=== PATIENT | female | born 1945 | race Caucasian/White ===

== ENCOUNTER → 2016-11-15 | Outpatient (CLI) | payer MEDICARE ==
[~2016-11-15] VITALS: Ht 160 cm; Wt 88.9 kg
[~2016-11-15] MED LIST: ACET500C PO; AMIT100TA PO; DILA100C PO; LATA5OPD OD; MELO15TA4 PO; PHEN30TA37 PO; PROP1TAB29 PO; PROPOFOL 200 MG/20 ML VIAL As Ordered ONE; SERT-138 PO; VITA200028 PO; [UNRECOGNIZED DRUG - CODE] PO
--- NOTE | 2016-11-15 15:07 | ROOR ---
Patient Name: Deja Medrano Procedure Date: 11/15/2016 2:45 PM Date of : 1945 Age: 71 Room: [facility] Gender: Female Note Status: Finalized Procedure: Upper GI endoscopy + Biopsies Indications: Follow-up of Flanagan's esophagus Providers: Gaston Dexter MD Referring MD: Colin Ruelas MD Requesting Provider: Medicines: Monitored Anesthesia Care Complications: No immediate complications. Procedure: Pre-Anesthesia Assessment: - The heart rate, respiratory rate, oxygen saturations, blood pressure, adequacy of pulmonary ventilation, and response to care were monitored throughout the procedure. The Endoscope was introduced through the mouth, and advanced to the second part of duodenum. The upper GI endoscopy was accomplished without difficulty. The patient tolerated the procedure well. Findings: The Z-line was regular and was found 25 cm from the incisors. The esophagus and gastroesophageal junction were examined with white light from a forward view and retroflexed position. There were esophageal mucosal changes secondary to established long-segment Flanagan's disease. These changes involved the mucosa at the upper extent of the gastric folds (40 cm from the incisors) extending to the Z-line (25 cm from the incisors). Circumferential salmon-colored mucosa was present from 25 to 40 cm. The maximum longitudinal extent of these esophageal mucosal changes was 15 cm in length. Mucosa was biopsied with a cold forceps for histology. A large hiatal hernia was present. No other significant abnormalities were identified in a careful examination of the stomach. The exam of the duodenum was otherwise normal. Impression: - Z-line regular, 25 cm from the incisors. - Esophageal mucosal changes secondary to established long-segment Flanagan's disease. Biopsied. - Large hiatal hernia. - The examination was otherwise normal. Recommendation: - Patient has a contact number available for emergencies. The signs and symptoms of potential delayed complications were discussed with the patient. Return to normal activities tomorrow. Written discharge instructions were provided to the patient. - Discharge patient to home. - Follow an antireflux regimen. - Continue present medications. - Await pathology results. - Telephone GI clinic for pathology results in 1 week. - Return to referring physician. - The findings and recommendations were discussed with the patient's family. Gaston Dexter MD Gaston Dexter MD 11/15/2016 3:07:24 PM This report has been signed electronically. Number of Addenda: 0 Note Initiated On: 11/15/2016 2:45 PM Estimated Blood Loss: Estimated blood loss: none.
[2016-11-15 15:30] VITALS: BP 160/97
== END ==
LOC: M OPP 13:41
PROVIDERS: ATTEND Internal Medicine Gastroenterology
DX: Z09 Encounter for follow-up examination after completed treatment for conditions other than malignant neoplasm (principal); K22.70 Barrett's esophagus without dysplasia; K44.9 Diaphragmatic hernia without obstruction or gangrene; K21.9 Gastro-esophageal reflux disease without esophagitis; G43.909 Migraine, unspecified, not intractable, without status migrainosus; G40.909 Epilepsy, unspecified, not intractable, without status epilepticus; Z90.49 Acquired absence of other specified parts of digestive tract; Z79.899 Other long term (current) drug therapy; Z88.0 Allergy status to penicillin; Z88.5 Allergy status to narcotic agent

== ENCOUNTER → 2017-03-28 | Outpatient (CLI) | payer MEDICARE ==
[~2017-03-28] MED LIST changes: -PROPOFOL 200 MG/20 ML VIAL As Ordered ONE
--- NOTE | 2017-03-28 09:56 | REPMRS ---
Patient History The patient states she has not had a clinical breast exam in over a year. Patient is postmenopausal. No known family history of cancer. Digital Mammo Screening Bilat: March 28, 2017 - Exam #: [id number] Bilateral CC and MLO view(s) were taken. Technologist: Ilsa Barrios, Technologist Prior study comparison: March 29, 2016, bilateral digital mammo screening bilat performed at [facility]. March 24, 2015, bilateral digital mammo screening bilat performed at [facility]. March 27, 2014, bilateral digital mammo screening bilat performed at [facility]. FINDINGS: The breast tissue is almost entirely fat. There has been no change in the appearance of the mammogram from the prior studies. There is no interval development of dominant mass, architectural distortion, or clustered microcalcification typical of malignancy. ASSESSMENT: BI-RADS/ACR category 1 mammogram. Negative. Recommendation Routine screening mammogram of both breasts in 1 year (for women over age 40). This mammogram was interpreted with the aid of an FDA-approved computer-aided dectection system. Electronically Signed By: Bronson Javed MD 03/28/17 3422
== END ==
LOC: M RAD 09:11
PROVIDERS: ATTEND Family Medicine
DX: Z12.31 Encounter for screening mammogram for malignant neoplasm of breast (principal)

== ENCOUNTER → 2017-06-21 | Outpatient (REF) | payer MEDICARE ==
[~2017-06-21] MED LIST changes: +CALC1TAB7 PO; -[UNRECOGNIZED DRUG - CODE] PO
[2017-06-21 14:36] LABS: PHENOBARBITAL LEVEL 19.1 UG/ML (15.0-40.0)
== END ==
LOC: M LAB REF 08:44
PROVIDERS: ATTEND Family Medicine
DX: R56.9 Unspecified convulsions (principal)

== ENCOUNTER → 2017-08-14 | Outpatient (CLI) | payer MEDICARE ==
--- NOTE | 2017-08-15 08:57 | DEXA ---
AP SPINE L1 - L4 1.310 0.9 2.6 LT FEMUR TOTAL 0.953 -0.4 1.1 RT FEMUR TOTAL 0.905 -0.8 0.7 TOTAL BODY TOTAL OTHER DUAL FEMUR FRAX* ASSESSMENT Risk factors: 10 year probability of fracture Major osteoporotic fracture % Hip fracture % COMMENTS: Normal bone densitometry of the spine and hips. The increased density of the spine does represent a significant change. The increased density of the left hip does represent a significant change. The increased density of the right hip does represent a significant change. The density of the spine has increased 27.4% since the initial exam on 02/2003. The spine density has increased 2.7% since the most recent exam on 07/2015. The density of the left hip has increased 10.0% since the initial exam on 2002. The density of the left hip has increased 6.0% since the most recent exam on 2014. The density of the right hip has increased 6.3% since the initial exam on 2002. The density of the right hip has increased 2.3% since the most recent exam on . FOLLOW-UP: Recommendation for the next bone density exam: Years. [place]
== END ==
LOC: M WHC 09:23
PROVIDERS: ATTEND Family Medicine
DX: M85.80 Other specified disorders of bone density and structure, unspecified site (principal); M81.0 Age-related osteoporosis without current pathological fracture

== ENCOUNTER → 2018-03-27 | Outpatient (CLI) | payer MEDICARE | LOC: M RAD 09:19 | DX: Z12.31 Encounter for screening mammogram for malignant neoplasm of breast (principal) | CPT/HCPCS: 77067 ==

== ENCOUNTER → 2018-06-28 | Outpatient (REF) | payer MEDICARE ==
[2018-06-28 15:32] LABS: PHENYTOIN (DILANTIN) 4.5 UG/ML (10.0-20.0)
[2018-06-28 15:32] LABS: PHENOBARBITAL LEVEL 16.3 UG/ML (15.0-40.0)
== END ==
LOC: M LAB REF 13:56
DX: R56.9 Unspecified convulsions (principal)
CPT/HCPCS: 80185

== ENCOUNTER 2018-12-10 08:08 | Day surgery (SDC) | payer MEDICARE ==
[~2018-12-10] VITALS: Ht 160 cm; Wt 86.6 kg
[~2018-12-10 08:08] MED LIST changes: +ACET500T15 PO; +MELO15TA28 PO; -MELO15TA4 PO; +PHEN60TA9 PO; -PROP1TAB29 PO; +PROP20TA72 PO; +XALA0.007 OU
[2018-12-10] MEDS ORDERED: PROPOFOL 200 MG/20 ML VIAL As Ordered ONE (08:13)
[2018-12-10] MEDS ORDERED: LIDOCAINE 2% INJ 100 MG/5 ML SDV (FOR ANES.) As Ordered ONE (08:13)
[2018-12-10] MEDS ORDERED: fentaNYL 100 MCG/2 ML INJECTION (J3010) As Ordered ONE (08:41)
[2018-12-10] MEDS ORDERED: NS 1,000 ML IV ONE (08:45)
--- NOTE | 2018-12-10 09:36 | ROOR ---
Patient Name: Deja Medrano Procedure Date: 12/10/2018 9:17 AM Date of : 1945 Age: 73 Room: [facility] Gender: Female Note Status: Finalized Procedure: Upper Endoscopy + Biopsies Indications: Heartburn, Flanagan's esophagus, Follow-up of Flanagan's esophagus Providers: Gaston Dexter MD Referring MD: Colin Ruelas MD Requesting Provider: Medicines: Monitored Anesthesia Care Complications: No immediate complications. Procedure: Pre-Anesthesia Assessment: - The heart rate, respiratory rate, oxygen saturations, blood pressure, adequacy of pulmonary ventilation, and response to care were monitored throughout the procedure. The Endoscope was introduced through the mouth, and advanced to the second part of duodenum. The upper GI endoscopy was accomplished without difficulty. The patient tolerated the procedure well. Findings: The Z-line was irregular and was found 25 cm from the incisors. Multiple biopsies were obtained with cold forceps for evaluation to rule out Flanagan's Esophagus randomly at the gastroesophageal junction. A medium-sized hiatal hernia was present. No other significant abnormalities were identified in a careful examination of the stomach. The exam of the duodenum was otherwise normal. Impression: - Z-line irregular, 25 cm from the incisors. - Medium-sized hiatal hernia. - Multiple biopsies were obtained at the gastroesophageal junction. - The examination was otherwise normal. Recommendation: - Patient has a contact number available for emergencies. The signs and symptoms of potential delayed complications were discussed with the patient. Return to normal activities tomorrow. Written discharge instructions were provided to the patient. - High fiber diet. - Discharge patient to home. - Continue present medications. - Await pathology results. - Telephone GI clinic for pathology results in 1 week. - The findings and recommendations were discussed with the patient's family. Gaston Dexter MD Gaston Dexter MD 12/10/2018 9:36:11 AM This report has been signed electronically. Number of Addenda: 0 Note Initiated On: 12/10/2018 9:17 AM Estimated Blood Loss: Estimated blood loss: none.
[2018-12-10 10:05] VITALS: BP 156/78
== END 2018-12-10 10:11 | disposition home or self-care (01) ==
LOC: M OPP 08:08
PROVIDERS: ATTEND Internal Medicine Gastroenterology
DX: K22.8 Other specified diseases of esophagus (principal); K44.9 Diaphragmatic hernia without obstruction or gangrene; K22.70 Barrett's esophagus without dysplasia; R12 Heartburn; Z79.899 Other long term (current) drug therapy; Z88.0 Allergy status to penicillin; Z88.5 Allergy status to narcotic agent; Z91.048 Other nonmedicinal substance allergy status
CPT/HCPCS: 43239; 88305; J3010

== ENCOUNTER → 2019-04-05 | Outpatient (CLI) | payer MEDICARE ==
[~2019-04-05] MED LIST changes: +LATA0.0013 OD; -LATA5OPD OD
--- NOTE | 2019-04-05 10:36 | REPMRS ---
Patient History The patient states she has not had a clinical breast exam in over a year. No known family history of cancer. Digital Mammo Screening Bilat: April 05, 2019 - Exam #: [id number] Bilateral CC and MLO view(s) were taken. Technologist: Zakiya Jason Technologist Prior study comparison: March 27, 2018, bilateral digital mammo screening bilat performed at [facility]. March 28, 2017, bilateral digital mammo screening bilat performed at [facility]. March 29, 2016, bilateral digital mammo screening bilat performed at [facility]. FINDINGS: There are scattered fibroglandular densities. There has been no change in the appearance of the mammogram from the prior studies. There is a mild amount of scattered fibroglandular density which is fairly symmetric. There is no interval development of dominant mass, architectural distortion, or clustered microcalcification suggestive of malignancy. 3-D tomosynthesis shows no additional findings. Assessment: BI-RADS/ACR category 1 mammogram. Negative Mammogram. Recommendation Routine screening mammogram of both breasts in 1 year (for women over age 40). This patient's Lifetime Breast Cancer RIsk is estimated at 2.9 %. This mammogram was interpreted with the aid of an FDA-approved computer-aided dectection system. Electronically Signed By: Bronson Javed MD 04/05/19 [id number]
== END ==
LOC: M RAD 09:13
PROVIDERS: ATTEND Family Medicine
DX: Z12.31 Encounter for screening mammogram for malignant neoplasm of breast (principal)

== ENCOUNTER → 2019-06-27 | Outpatient (REF) | payer MEDICARE ==
[~2019-06-27] MED LIST changes: -CALC1TAB7 PO; +CALC260T PO; +ELIQ5TAB PO; +FURO20TA2 PO; +KEPP250T5 PO; +LEVE750T5 PO; +LISI-542 PO; +MAG400TA PO; +MAGN400T2 PO; +METO1TAB32 PO
[2019-06-27 14:34] LABS: PHENOBARBITAL LEVEL 14.2 UG/ML (15.0-40.0); PHENYTOIN (DILANTIN) 3.9 UG/ML (10.0-20.0)
== END ==
LOC: M LAB REF 13:28
PROVIDERS: ATTEND Family Medicine
DX: R56.9 Unspecified convulsions (principal)

== ENCOUNTER 2019-09-17 04:41 | Emergency (ER) | payer MEDICARE ==
[~2019-09-17] VITALS: Ht 165.1 cm; Wt 88.6 kg
[~2019-09-17 04:41] MED LIST changes: -ELIQ5TAB PO; -FURO20TA2 PO; -KEPP250T5 PO; -LEVE750T5 PO; -LISI-542 PO; -MAG400TA PO; -MAGN400T2 PO; -METO1TAB32 PO
[2019-09-17 05:20] LABS: BASO # 0.1 10^3/uL (0.0-0.2); BASO % 0.6 % (0.0-1.0); EOS # 0.1 10^3/uL (0.0-0.5); EOS % 0.8 % (0.0-3.0); HEMATOCRIT 40.1 % (36.0-47.0); HEMOGLOBIN 12.8 g/dl (12.0-15.5); LYMPH # 1.4 10^3/uL (1.5-5.0); LYMPH % 12.2 % (24.0-44.0); MEAN CORPUSCULAR HEMOGLOBIN 31.2 pg (27.0-33.0); MEAN CORPUSCULAR HGB CONC 31.9 g/dl (32.0-36.5); MEAN CORPUSCULAR VOLUME 97.8 fl (80.0-96.0); MONO # 0.7 10^3/uL (0.0-0.8); MONO % 6.6 % (0.0-5.0); NEUTROPHILS # 8.9 10^3/uL (1.5-8.5); NEUTROPHILS % 79.4 % (36.0-66.0); PLATELET COUNT, AUTOMATED 232 10^3/uL (150-450); WHITE BLOOD COUNT 11.2 10^3/uL (4.0-10.0)
--- NOTE | 2019-09-17 05:43 | REPVR ---
PROCEDURE INFORMATION: Exam: CT Head Without Contrast Exam date and time: 09/17/2019 5:28 AM Age: 74 years old Clinical history: Syncope and collapse TECHNIQUE: Imaging protocol: Computed tomography of the head without contrast. Radiation optimization: All CT scans at this facility use at least one of these dose optimization techniques: automated exposure control; mA and/or kV adjustment per patient size (includes targeted exams where dose is matched to clinical indication); or iterative reconstruction. COMPARISON: No relevant prior studies available. FINDINGS: There is a small amount of acute subarachnoid hemorrhage over the high left frontal lobe. No other intracranial hemorrhage. No mass effect or midline shift. Ventricles are symmetrical and non-dilated for age. Chronic ischemic changes in the periventricular deep white matter with probable old lacunar infarction in the right basal ganglia. No other focal parenchymal abnormalities. No calvarial fractures. IMPRESSION: Small amount of acute subarachnoid hemorrhage over the high left frontal lobe. Etiology is unknown, although subjectively appears posttraumatic. Correlation with trauma history is recommended. No other acute intracranial process. No mass effect or midline shift. Findings were discussed with NICO FRASER at 09/17/2019 5:42 AM EST Electronically signed by: Yuri Myers On 09/17/2019 05:42:37 AM
[2019-09-17 05:52] LABS: BLOOD UREA NITROGEN 15 MG/DL (7-18); CARBON DIOXIDE LEVEL 25 MEQ/L (21-32); CHLORIDE LEVEL 107 MEQ/L (98-107); CK-MB VALUE MASS 3.6 NG/ML (<3.6); CPK CREATINE PHOSPHOKINASE 89 U/L (26-192); CREATININE FOR GFR 0.91 MG/DL (0.55-1.30); GLOMERULAR FILTRATION RATE > 60.0 (>39); GLUCOSE, FASTING 134 MG/DL (70-100); MB/CK RELATIVE INDEX 4.04 (< OR =4); POTASSIUM SERUM 3.8 MEQ/L (3.5-5.1); SODIUM LEVEL 140 MEQ/L (136-145)
[2019-09-17 06:11] LABS: INR 1.13; PROTHROMBIN TIME 14.2 SECONDS (11.8-14.0)
[2019-09-17 06:12] LABS: PARTIAL THROMBOPLASTIN TIME 25.8 SECONDS (25.0-38.4)
[2019-09-17] MEDS ORDERED: ONDANSETRON 4MG/2ML VIAL (J2405) IV ONE (06:15)
[2019-09-17] MEDS ORDERED: MORPHINE 4 MG/ML 1ML VIAL/SYRINGE (J2270) IV PRN (06:15)
[2019-09-17 06:17] LABS: PHENYTOIN (DILANTIN) 3.1 UG/ML (10.0-20.0)
[2019-09-17 06:31] VITALS: BP 172/98
--- NOTE | 2019-09-17 07:49 | REP ---
Clinical: Syncope/near-syncopal episode . Comparison: None . Findings: The mediastinum and cardiac silhouette are stable and within normal limits for portable technique. The lung hahn are clear without acute consolidation, effusion, or pneumothorax. Skeletal structures are intact. Impression: No acute cardiopulmonary process appreciated. Electronically Signed by Arnav Morales MD 09/17/2019 07:40 A
--- NOTE | 2019-09-18 08:40 | ECGEPIP ---
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
== END 2019-09-17 06:47 | disposition short-term general hospital (02) ==
LOC: M ED 04:41
DX: S06.6X0A Traumatic subarachnoid hemorrhage without loss of consciousness, initial encounter (principal); W18.39XA Other fall on same level, initial encounter; Y92.098 Other place in other non-institutional residence as the place of occurrence of the external cause; Y93.01 Activity, walking, marching and hiking; Y99.8 Other external cause status; R53.1 Weakness; R06.02 Shortness of breath; I10 Essential (primary) hypertension; G40.909 Epilepsy, unspecified, not intractable, without status epilepticus; Z88.0 Allergy status to penicillin; Z88.5 Allergy status to narcotic agent; Z91.048 Other nonmedicinal substance allergy status; Z79.899 Other long term (current) drug therapy
CPT/HCPCS: 70450; 71045; 80048; 80185; 82550; 82553; 83605; 84443; 84484; 85025; 85610; 85730; 93005; 93041; 94760; 96374; 96375; 99285; J2270; J2405

== ENCOUNTER 2019-09-25 12:51 | Inpatient (IN) | payer MEDICARE ==
[~2019-09-25] VITALS: Ht 165.1 cm; Wt 83.0 kg
[2019-09-25 15:16] VITALS: BP 143/67
[2019-09-25] MEDS ORDERED: LEVE750T5 PO (17:05)
[2019-09-25] MEDS ORDERED: MAGN400T2 PO (17:05)
[2019-09-25] MEDS ORDERED: SERT-138 PO (17:05)
[2019-09-25] MEDS ORDERED: ELIQ5TAB PO (17:05)
[2019-09-25] MEDS ORDERED: MOM 30ML SUSPENSION UDC PO PRN (17:30)
[2019-09-25] MEDS ORDERED: BISACODYL 5 MG TAB PO PRN (17:30)
[2019-09-25] MEDS: LATANOPROST 0.005% OPHTH SOLN 2.5 ML OU SCH (20:03)
[2019-09-25] MEDS: levETIRAcetam 250MG TABLET (KEPPRA) PO SCH (20:03)
[2019-09-25] MEDS: APIXABAN 5 MG TAB (ELIQUIS) PO SCH (20:03)
[2019-09-25] MEDS: DOCUSATE SODIUM 100 MG CAP PO SCH (20:03)
[2019-09-25] MEDS: SENNA 8.6 MG TAB (SENOKOT) PO SCH (20:03)
[2019-09-25 20:35] VITALS: BP 136/84
[2019-09-26 06:30] VITALS: BP 161/77
[2019-09-26 06:45] LABS: BASO # 0.1 10^3/uL (0.0-0.2); BASO % 0.6 % (0.0-1.0); EOS # 0.2 10^3/uL (0.0-0.5); EOS % 1.9 % (0.0-3.0); HEMATOCRIT 37.4 % (36.0-47.0); HEMOGLOBIN 11.9 g/dl (12.0-15.5); LYMPH # 1.1 10^3/uL (1.5-5.0); LYMPH % 11.4 % (24.0-44.0); MEAN CORPUSCULAR HEMOGLOBIN 30.9 pg (27.0-33.0); MEAN CORPUSCULAR HGB CONC 31.8 g/dl (32.0-36.5); MEAN CORPUSCULAR VOLUME 97.1 fl (80.0-96.0); MONO % 10.8 % (0.0-5.0); NEUTROPHILS # 7.2 10^3/uL (1.5-8.5); PLATELET COUNT, AUTOMATED 255 10^3/uL (150-450); RED BLOOD COUNT 3.85 10^6/uL (4.00-5.40); WHITE BLOOD COUNT 9.6 10^3/uL (4.0-10.0)
[2019-09-26 07:13] LABS: BLOOD UREA NITROGEN 7 MG/DL (7-18); CREATININE FOR GFR 0.57 MG/DL (0.55-1.30); GLUCOSE, FASTING 107 MG/DL (70-100)
[2019-09-26 07:14] LABS: ALBUMIN 2.6 GM/DL (3.2-5.2); ALT/SGPT 31 U/L (12-78); BILIRUBIN,TOTAL 0.5 MG/DL (0.2-1.0); CALCIUM LEVEL 8.4 MG/DL (8.8-10.2); CARBON DIOXIDE LEVEL 26 MEQ/L (21-32); CHLORIDE LEVEL 106 MEQ/L (98-107); GLOMERULAR FILTRATION RATE > 60.0 (>39); SODIUM LEVEL 139 MEQ/L (136-145); TOTAL PROTEIN 6.8 GM/DL (6.4-8.2)
[2019-09-26] MEDS: SERTRALINE 100 MG TAB PO SCH (09:26)
[2019-09-26] MEDS: DOCUSATE SODIUM 100 MG CAP PO SCH ×2 (09:26→21:00)
[2019-09-26] MEDS: APIXABAN 5 MG TAB (ELIQUIS) PO SCH ×2 (09:27→21:00)
[2019-09-26] MEDS: levETIRAcetam 250MG TABLET (KEPPRA) PO SCH ×2 (09:27→21:00)
[2019-09-26] MEDS: MAGNESIUM OXIDE 400 MG TAB (MAG-OX) PO SCH (09:27)
[2019-09-26] MEDS: ACETAMINOPHEN TAB 650MG DOSE (2X325MG) PO PRN (09:27)
[2019-09-26] MEDS: PANTOPRAZOLE 40MG TAB (PROTONIX) PO SCH (09:27)
[2019-09-26 14:30] VITALS: BP 143/79
--- NOTE | 2019-09-26 14:48 | HPEPDOC ---
Material Lister Note DATE OF ADMISSION: 09-25-19 SOURCE OF ADMISSION INFORMATION: [facility] records and patient CHIEF COMPLAINT: SAH HISTORY OF PRESENT ILLNESS: 74F with pmh seizure disorder who fell at home with LOC, hitting her head, and transferred from [facility] ED to [facility] on 09-17-19 for traumatic SAH with CTH showing, small amount of acute subarachnoid hemorrhage over the high left frontal lobe. Upon arrival she was hypoxic in acute respiratory failure and found to have bilateral DVTs and bilateral PEs, was started on IV heparin, transitioned to Lovenox, and later transitioned to oral eliquis per neurology recommendations with repeat CTH scans showing stable SAH. Etiology of her VTE was unknown with patient reporting weeks of dyspnea with exertion and dizziness. TTE showed, " Estimated LVEF 55 - 60%. Indeterminate LV diastolic functionThe right ventricle is markedly enlarged. The right ventricular systolic function is impaired. The right ventricular free wall is dyskinetic." Her SAH remained stable while on anticoagulation, and she was instructed to follow-up with neurology for a planum spenoidal meningioma, an incidental finding on CTA. She was treated for a UTI and her home phenobarbital and Dilantin was switched to Keppra to avoid drug interaction while on blood thinners. She was evaluated by therapy, found to have mobility and ADL impairments and deemed medically appropriate for discharge to ARU on 09-25-19. REVIEW OF SYSTEMS: The following is a completed review of systems and has been reviewed. Review of systems otherwise unremarkable. PAIN: Patient self reports no pain EYES: No recent vision changes EARS, NOSE, & THROAT: No throat pain, or dysphagia, or rhinorrhea CARDIOVASCULAR: Denies chest pain or palpitations PULMONARY: Denies shortness of breath at rest GASTROINTESTINAL: Denies constipation/diarrhea GENITOURINARY: denies dysuria MUSCULOSKELETAL: mild right sided weakness NEUROLOGICAL:+SAH and hx of seizures HEMATOLOGICAL: denies easy bruising SKIN: right temporal ecchymosis PSYCHIATRIC: Unremarkable All other review of systems found to be negative. PAST MEDICAL HISTORY: as per HPI PAST SURGICAL HISTORY: as per HPI ALLERGIES: Please see below. MEDICATIONS: Please see below. SOCIAL HISTORY: No etoh, smoking, illicit drugs DIET: regular diet PHYSICAL EXAMINATION: VITAL SIGNS: Please see below. GENERAL: Pleasant and cooperative. No acute distress. HEENT: PERRL. Extraocular movements intact. Clear conjunctiva CARDIOVASCULAR: Regular rate and rhythm. No murmurs, rubs, or gallops LUNGS: Clear to auscultation bilaterally. No wheezes. No rhonchi ABDOMEN: Soft, nontender, nondistended. Positive bowel sounds. Normal active bowel sounds NEUROLOGICAL: Alert and oriented times three. Cranial nerves II through XII grossly intact. Sensation grossly intact in all 4 limbs EXTREMITIES: 5\\5 strength bilateral upper extremities. 5\\5 strength right lower extremity (apraxic right LE). 5/5 strength in left lower extremity. SKIN: right temporal ecchymosis LABORATORY DATA: Please see below. IMAGING:Imaging documentation personally reviewed by record FUNCTIONAL STATUS: Premorbid: Independent with all activities of daily life as well as mobility On Admission: Minimum assistance for bathing, upper body dressing, bed chair and wheelchair transfers, toilet transfers, ambulation. GOALS: Mod-I with RW, functional transfers, stairs, community distances, toileting, bathing, grooming, assess for DMEs ASSESSMENT:74-year-old F with past medical history of seizure disorder who presents status post fall with traumatic SAH found to have bilat PE and DVTs. PLAN: 1. 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 Neuro: hx seizure disorder, recenly switched from dilantin/phenobarbital to Keppra, will f/u Keppra levels- seizure precautions -recent traumatic left frontal SAH with right sided apraxia 3. CArdio/Vasc: patient with bilat PEs and DVTs c/u Eliquis, monitor for bl eeding -recent ECHO with diastolic CHF, will fluid restrict 4. Resp: c/u 02 ins etting of PE, encourage incentive spirometry 5. GI ppx: protonix 6. DVT: on eliquis full dose 7. Psych: hx of depression- c/u ZOloft 9. Pain: tylenol prn 10. Dispo: TBD POST ADMISSION PHYSICIAN EVALUATION: Medical and functional status: Description of medical status, medical assessment: As above. Rehabilitation diagnosis and current and prior cold morbid medical conditions as above. Risk of complications and plans to mitigate them as above. Description of functional status current status is as above. Prior status as above. Status compared to preadmission: There are no clinically significant differences between the patient's current status and the information described on the preadmission screening document. Treatment plan anticipated: Treatment plan is as described above. Required disciplines including physical therapy, occupational therapy, others as noted above. Intensity of services: 3 hours a day, 6 days a week. Special considerations: There are no specific special or safety considerations that would likely preclude immediate implementation of an intensive rehabilitation program or subsequently influence the plan of care ATTESTATION: Considering all the information above, it is my best judgment that this patient requires intensive rehabilitation therapy as described above and an inpatient hospital environment due to the complexity of nursing, medical, and rehabilitation needs required by the patient. Furthermore, this patient can reasonably be expected to participate in an benefit from an inpatient rehabilitation stay with an interdisciplinary team approach to the delivery of rehabilitation care under the direction and supervision of rehabilitation physician PROGNOSIS: Excellent ESTIMATED LENGTH OF STAY:12-14 days days. PROJECTED DISCHARGE DESTINATION: Home with family support and any durable medical equipment required to increase functional safety and mobility. TIME SPENT COUNSELING AND COORDINATING INITIAL CARE: Greater than 70 minutes. Vital Signs Vital Sign - Last 24 Hours 09/25/19 09/25/19 09/25/19 09/26/19 15:16 20:35 21:00 06:30 Temp 99.1 99.6 98.7 Pulse 106 94 98 Resp 22 19 18 B/P (MAP) 143/67 (92) 136/84 (101) 161/77 (105) Pulse Ox 94 96 96 O2 Delivery Nasal Cannula Nasal Cannula Nasal Cannula O2 Flow Rate 2.0 2.0 2.0 2.0 09/26/19 09:00 O2 Flow Rate 2.0 Laboratory Data CBC/BMP Laboratory Tests 09/26/19 06:34 Labs 24H Laboratory Tests 2 09/26/19 06:34: Immature Granulocyte % (Auto) 0.3, Neutrophils (%) (Auto) 75.0H, Lymphocytes (%) (Auto) 11.4L, Monocytes (%) (Auto) 10.8H, Eosinophils (%) (Auto) 1.9, Basophils (%) (Auto) 0.6, Neutrophils # (Auto) 7.2, Lymphocytes # (Auto) 1.1L, Monocytes # (Auto) 1.0H, Eosinophils # (Auto) 0.2, Basophils # (Auto) 0.1, Nucleated Red Blood Cells % (auto) 0.0, Anion Gap 7L, Glomerular Filtration Rate > 60.0, Calcium Level 8.4L, Total Bilirubin 0.5, Aspartate Amino Transf (AST/SGOT) 30, Alanine Aminotransferase (ALT/SGPT) 31, Alkaline Phosphatase 99, Total Protein 6.8, Albumin 2.6L, Albumin/Globulin Ratio 0.62L Home Medications Scheduled Apixaban (Eliquis) 5 Mg Tablet, 5 MG PO BID, (Reported) Calcium Carbonate (Calcium Carbonate) 648 Mg Tab, 648 MG PO TID, (Reported) Ergocalciferol (Vitamin D2) (Vitamin D2) 2,000 Unit Tab, 50,000 UNIT PO QWEEK, (Reported) MONDAY Latanoprost (Xalatan) 0.005 % Yeny, 1 DROP OU QHS, (Reported) Levetiracetam (Levetiracetam) 750 Mg Tablet, 750 MG PO BID, (Reported) Magnesium Oxide (Magnesium Oxide) 400 Mg Tablet, 400 MG PO DAILY, (Reported) Sertraline HCl (Sertraline HCl) 100 Mg Tablet, 100 MG PO DAILY, (Reported) Scheduled PRN Acetaminophen (Acetaminophen) 500 Mg Tab, 500 MG PO PRN PRN for PAIN, (Reported) Allergies Coded Allergies: TAPE (Verified Allergy, Intermediate, rash, 12/03/18) Penicillins (Verified Allergy, Unknown, 09/17/19) codeine (Verified Adverse Reaction, Mild, GI DISTRESS, 09/17/19) A-FIB/CHADSVASC A-FIB History Current/History of A-Fib/PAF?: No PAMELA MUNIZ MD Sep 26, 2019 14:48
--- NOTE | 2019-09-26 14:52 | IPNPDOC ---
PM&R Progress Note DATE OF SERVICE: Sep 26, 2019 Child Care Director Progress Note Subjective: Patient reporting she woke up at 4 am, but is hesitant to try a sleep medication. She denies worsening shortness of breath and is able to pace herself in therapy. REVIEW OF SYSTEMS: The following is a completed review of systems and has been reviewed. Review of systems otherwise unremarkable. PAIN: Patient self reports no pain EYES: No recent vision changes EARS, NOSE, & THROAT: No throat pain, or dysphagia, or rhinorrhea CARDIOVASCULAR: Denies chest pain or palpitations PULMONARY: Denies shortness of breath at rest GASTROINTESTINAL: Denies constipation/diarrhea GENITOURINARY: denies dysuria MUSCULOSKELETAL: mild right sided weakness NEUROLOGICAL:+SAH and hx of seizures HEMATOLOGICAL: denies easy bruising SKIN: right temporal ecchymosis PSYCHIATRIC: Unremarkable All other review of systems found to be negative. PHYSICAL EXAMINATION: VITAL SIGNS: Please see below. GENERAL: Pleasant and cooperative. No acute distress. HEENT: PERRL. Extraocular movements intact. Clear conjunctiva CARDIOVASCULAR: Regular rate and rhythm. No murmurs, rubs, or gallops LUNGS: Clear to auscultation bilaterally. No wheezes. No rhonchi ABDOMEN: Soft, nontender, nondistended. Positive bowel sounds. Normal active bowel sounds NEUROLOGICAL: Alert and oriented times three. Cranial nerves II through XII grossly intact. Sensation grossly intact in all 4 limbs EXTREMITIES: 5\5 strength bilateral upper extremities. 5\5 strength right lower extremity (apraxic right LE). 5/5 strength in left lower extremity. SKIN: right temporal ecchymosis ASSESSMENT:74-year-old F with past medical history of seizure disorder who presents status post fall with traumatic SAH found to have bilat PE and DVTs. PLAN: 1. 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 CArdio/Vasc: patient with bilat PEs and DVTs c/u Eliquis, monitor for ble eding -recent ECHO with diastolic CHF, will fluid restrict 4. Resp: c/u 02 ins etting of PE, encourage incentive spirometry 5. GI ppx: protonix 6. DVT: on eliquis full dose 7. Psych: hx of depression- c/u ZOloft 9. Pain: tylenol prn 10. Dispo: TBD Allergies Coded Allergies: TAPE (Verified Allergy, Intermediate, rash, 12/03/18) Penicillins (Verified Allergy, Unknown, 09/17/19) codeine (Verified Adverse Reaction, Mild, GI DISTRESS, 09/17/19) Vital Signs Vital Signs Date Time Temp Pulse Resp B/P (MAP) Pulse Ox O2 Delivery O2 Flow Rate FiO2 09/26/19 09:00 2.0 09/26/19 06:30 98.7 98 18 161/77 (105) 96 Nasal Cannula Laboratory Data CBC/BMP Laboratory Tests 09/26/19 06:34 Labs 24H Laboratory Tests 2 09/26/19 06:34: Immature Granulocyte % (Auto) 0.3, Neutrophils (%) (Auto) 75.0H, Lymphocytes (%) (Auto) 11.4L, Monocytes (%) (Auto) 10.8H, Eosinophils (%) (Auto) 1.9, Basophils (%) (Auto) 0.6, Neutrophils # (Auto) 7.2, Lymphocytes # (Auto) 1.1L, Monocytes # (Auto) 1.0H, Eosinophils # (Auto) 0.2, Basophils # (Auto) 0.1, Nucleated Red Blood Cells % (auto) 0.0, Anion Gap 7L, Glomerular Filtration Rate > 60.0, Calcium Level 8.4L, Total Bilirubin 0.5, Aspartate Amino Transf (AST/SGOT) 30, Alanine Aminotransferase (ALT/SGPT) 31, Alkaline Phosphatase 99, Total Protein 6.8, Albumin 2.6L, Albumin/Globulin Ratio 0.62L Current Medications Current Medications Current Medications Medications (Trade) Dose Ordered Sig/Juanpablo Route PRN Reason Start Time Stop Time Status Last Admin Dose Admin Acetaminophen (Tylenol Tab) 650 mg Q4HP PRN PO MILD PAIN (PS 1-4) 09/25/19 17:30 09/26/19 09:27 Apixaban (Eliquis) 5 mg BID PO 10/02/19 09:00 Apixaban (Eliquis) 10 mg BID PO 09/25/19 21:00 10/01/19 23:59 09/26/19 09:27 Bisacodyl (Dulcolax Tab) 5 mg DAILYPRN PRN PO CONSTIPATION 09/25/19 17:30 Docusate Sodium (Colace) 100 mg BID PO 09/25/19 21:00 09/26/19 09:26 Home Med (Med Rec Complete!) ASDIRECTED XX 09/25/19 17:15 09/25/19 17:20 DC Latanoprost (Xalatan 0.005% Op Soln) 1 drop QHS OU 09/25/19 21:00 09/25/19 20:03 Levetiracetam (Keppra) 750 mg BID PO 09/25/19 21:00 09/26/19 09:27 Magnesium Hydroxide (Milk Of Magnesia) 30 ml DAILYPRN PRN PO CONSTIPATION 09/25/19 17:30 Magnesium Oxide (Mag-Ox) 400 mg DAILY PO 09/26/19 09:00 09/26/19 09:27 Pantoprazole Sodium (Protonix) 40 mg DAILY PO 09/26/19 09:00 09/26/19 09:27 Senna (Senokot) 1 tab QHS PO 09/25/19 21:00 09/25/19 20:03 Sertraline HCl (Zoloft) 100 mg DAILY PO 09/26/19 09:00 09/26/19 09:26 PAMELA MUNIZ MD Sep 26, 2019 14:52
[2019-09-26] MEDS ORDERED: traZODone 25MG PER 1/2 TABLET PO PRN (15:00)
--- NOTE | 2019-09-26 17:02 | HPEPDOC ---
General Date of Admission Sep 25, 2019 at 15:05 Date of Service: Sep 26, 2019 Attending Physician: MIKAELA GOMEZ MD Chief Complaint The patient is a 74-year-old female admitted with a reason for visit of S/P Fall, Subarachnoid Hemorrhage. Source: Patient Exam Limitations: No limitations Associated Symptoms: Denies Symptoms History of Present Illness Patient is being assessed by hospitalist group for any medical comorbidities. Ms Medrano was transferred from [facility], following a fall at home and subsequent SAH. Records from [facility] were reviewed with Dr. Preciado. Medically, the patient appears stable at this time. She has been on a regular diet and would like to be placed on the same while at [facility]. Patient is now on 2L: of O2 from 4L O2 while in [facility]. Ms. Medrano has denied any acute issues since being in hospital. Home Medications Scheduled Apixaban (Eliquis) 5 Mg Tablet, 5 MG PO BID, (Reported) Calcium Carbonate (Calcium Carbonate) 648 Mg Tab, 648 MG PO TID, (Reported) Ergocalciferol (Vitamin D2) (Vitamin D2) 2,000 Unit Tab, 50,000 UNIT PO QWEEK, (Reported) MONDAY Latanoprost (Xalatan) 0.005 % Yeny, 1 DROP OU QHS, (Reported) Levetiracetam (Levetiracetam) 750 Mg Tablet, 750 MG PO BID, (Reported) Magnesium Oxide (Magnesium Oxide) 400 Mg Tablet, 400 MG PO DAILY, (Reported) Sertraline HCl (Sertraline HCl) 100 Mg Tablet, 100 MG PO DAILY, (Reported) Scheduled PRN Acetaminophen (Acetaminophen) 500 Mg Tab, 500 MG PO PRN PRN for PAIN, (Reported) Allergies Coded Allergies: TAPE (Verified Allergy, Intermediate, rash, 12/03/18) Penicillins (Verified Allergy, Unknown, 09/17/19) codeine (Verified Adverse Reaction, Mild, GI DISTRESS, 09/17/19) Social History * Smoker: non-smoker Drugs: denies Recent Travel/Sick Contacts: Reports: Recent travel, Recent sick contacts A-FIB/CHADSVASC A-FIB History Current/History of A-Fib/PAF?: No Current PO Anticoag Therapy: Yes (Eliquis 5mg twice per day ) Review of Systems Constitutional: Denies: Chills, Fever, Night Sweats Eyes: Denies: Pain ENT: Denies: Head Aches Skin: Denies: Rash, Lesions Pulmonary: Denies: Dyspnea, Cough Cardiovascular: Denies: Chest Pain, Palpitations, Lt Headedness Gastrointestinal: Denies: Abdominal Pain Genitourinary: Denies: Dysuria, Retention Hematologic: Denies: Bruising, Bleeding Excessively Musculoskeletal: Denies: Neck Pain, Back Pain, Joint Pain, Muscle Pain, Spasms Neurological: Denies: Change in speech, Confusion Psych: Reports: Mood Normal; Denies: Depression, Memory Issues Physical Examination General Exam: Positive: Alert, Cooperative, No Acute Distress Eye Exam: Positive: Conjunctiva & lids normal ENT Exam: Positive: Atraumatic, Mucous membr. moist/pink, Pharynx Normal Neck Exam: Positive: Supple; Negative: thyromegaly Chest Exam: Positive: Clear to auscultation, Normal air movement Heart Exam: Positive: Rate Normal, Normal S1, Normal S2 Abdomen Exam: Positive: Soft; Negative: Tenderness Extremity Exam: Negative: Clubbing, Cyanosis, Edema Skin Exam: Positive: Nl turgor and temperature; Negative: Rash Neuro Exam: Negative: Normal Speech Psych Exam: Positive: Mental status NL Vital Signs Vital Signs Date Time Temp Pulse Resp B/P (MAP) Pulse Ox O2 Delivery O2 Flow Rate FiO2 09/26/19 14:30 97.6 79 18 143/79 (100) 94 Nasal Cannula 2.0 Laboratory Data Labs 24H Laboratory Tests 2 09/26/19 06:34: Immature Granulocyte % (Auto) 0.3, Neutrophils (%) (Auto) 75.0H, Lymphocytes (%) (Auto) 11.4L, Monocytes (%) (Auto) 10.8H, Eosinophils (%) (Auto) 1.9, Basophils (%) (Auto) 0.6, Neutrophils # (Auto) 7.2, Lymphocytes # (Auto) 1.1L, Monocytes # (Auto) 1.0H, Eosinophils # (Auto) 0.2, Basophils # (Auto) 0.1, Nucleated Red Blood Cells % (auto) 0.0, Anion Gap 7L, Glomerular Filtration Rate > 60.0, Calcium Level 8.4L, Total Bilirubin 0.5, Aspartate Amino Transf (AST/SGOT) 30, Alanine Aminotransferase (ALT/SGPT) 31, Alkaline Phosphatase 99, Total Protein 6.8, Albumin 2.6L, Albumin/Globulin Ratio 0.62L CBC/BMP Laboratory Tests 09/26/19 06:34 Plan / VTE VTE Prophylaxis Ordered?: Yes (Patient on Eliquis 5mg twice per day ) Plan Plan Patient will be managed per Acute Rehab. Medical comorbidities will be managed by hospitalist group. Diet: Advance (Progress to regular diet as tolerated ) Activity: Continue Current Therapy: LAMONT CUNNINGHAM PA-C Sep 26, 2019 17:02
[2019-09-26 21:00] VITALS: BP 130/60
[2019-09-26] MEDS: SENNA 8.6 MG TAB (SENOKOT) PO SCH (21:00)
[2019-09-26] MEDS: LATANOPROST 0.005% OPHTH SOLN 2.5 ML OU SCH (21:00)
[2019-09-27 06:26] VITALS: BP 140/82
[2019-09-27 07:48] LABS: BASO # 0.1 10^3/uL (0.0-0.2); BASO % 0.8 % (0.0-1.0); BLOOD UREA NITROGEN 6 MG/DL (7-18); CALCIUM LEVEL 8.8 MG/DL (8.8-10.2); CARBON DIOXIDE LEVEL 26 MEQ/L (21-32); CHLORIDE LEVEL 104 MEQ/L (98-107); CREATININE FOR GFR 0.65 MG/DL (0.55-1.30); EOS # 0.3 10^3/uL (0.0-0.5); EOS % 3.4 % (0.0-3.0); GLOMERULAR FILTRATION RATE > 60.0 (>39); GLUCOSE, FASTING 114 MG/DL (70-100); HEMATOCRIT 37.2 % (36.0-47.0); HEMOGLOBIN 12.3 g/dl (12.0-15.5); LYMPH # 1.3 10^3/uL (1.5-5.0); LYMPH % 14.9 % (24.0-44.0); MEAN CORPUSCULAR HEMOGLOBIN 31.6 pg (27.0-33.0); MEAN CORPUSCULAR HGB CONC 33.1 g/dl (32.0-36.5); MEAN CORPUSCULAR VOLUME 95.6 fl (80.0-96.0); MONO # 0.8 10^3/uL (0.0-0.8); MONO % 9.8 % (0.0-5.0); NEUTROPHILS # 6.1 10^3/uL (1.5-8.5); NEUTROPHILS % 70.6 % (36.0-66.0); PLATELET COUNT, AUTOMATED 305 10^3/uL (150-450); POTASSIUM SERUM 3.4 MEQ/L (3.5-5.1); RED BLOOD COUNT 3.89 10^6/uL (4.00-5.40); SODIUM LEVEL 138 MEQ/L (136-145); WHITE BLOOD COUNT 8.6 10^3/uL (4.0-10.0)
[2019-09-27] MEDS: DOCUSATE SODIUM 100 MG CAP PO SCH ×2 (09:34→21:41)
[2019-09-27] MEDS: levETIRAcetam 250MG TABLET (KEPPRA) PO SCH ×2 (09:34→21:41)
[2019-09-27] MEDS: PANTOPRAZOLE 40MG TAB (PROTONIX) PO SCH (09:35)
[2019-09-27] MEDS: MAGNESIUM OXIDE 400 MG TAB (MAG-OX) PO SCH (09:35)
[2019-09-27] MEDS: APIXABAN 5 MG TAB (ELIQUIS) PO SCH ×2 (09:35→21:41)
[2019-09-27] MEDS: SERTRALINE 100 MG TAB PO SCH (09:35)
[2019-09-27] MEDS ORDERED: POTASSIUM CHLORIDE 10 MEQ SR TABLET PO ONE (11:00)
[2019-09-27 14:00] VITALS: BP 135/94
[2019-09-27] MEDS: ACETAMINOPHEN TAB 650MG DOSE (2X325MG) PO PRN (14:44)
[2019-09-27 20:10] VITALS: BP 141/81
[2019-09-27] MEDS: SENNA 8.6 MG TAB (SENOKOT) PO SCH (21:40)
[2019-09-27] MEDS: LATANOPROST 0.005% OPHTH SOLN 2.5 ML OU SCH (21:41)
[2019-09-28 06:00] VITALS: BP 146/81
[2019-09-28 07:01] LABS: BLOOD UREA NITROGEN 7 MG/DL (7-18); CALCIUM LEVEL 8.4 MG/DL (8.8-10.2); CARBON DIOXIDE LEVEL 27 MEQ/L (21-32); CHLORIDE LEVEL 108 MEQ/L (98-107); CREATININE FOR GFR 0.52 MG/DL (0.55-1.30); GLOMERULAR FILTRATION RATE > 60.0 (>39); GLUCOSE, FASTING 97 MG/DL (70-100); POTASSIUM SERUM 3.8 MEQ/L (3.5-5.1); SODIUM LEVEL 142 MEQ/L (136-145)
[2019-09-28] MEDS: DOCUSATE SODIUM 100 MG CAP PO SCH ×2 (10:10→22:08)
[2019-09-28] MEDS: SERTRALINE 100 MG TAB PO SCH (10:10)
[2019-09-28] MEDS: PANTOPRAZOLE 40MG TAB (PROTONIX) PO SCH (10:10)
[2019-09-28] MEDS: levETIRAcetam 250MG TABLET (KEPPRA) PO SCH ×2 (10:11→22:07)
[2019-09-28] MEDS: APIXABAN 5 MG TAB (ELIQUIS) PO SCH ×2 (10:11→22:07)
[2019-09-28] MEDS: MAGNESIUM OXIDE 400 MG TAB (MAG-OX) PO SCH (10:11)
[2019-09-28 14:00] VITALS: BP 132/68
[2019-09-28 20:00] VITALS: BP 126/60
[2019-09-28] MEDS: SENNA 8.6 MG TAB (SENOKOT) PO SCH (22:07)
[2019-09-28] MEDS: LATANOPROST 0.005% OPHTH SOLN 2.5 ML OU SCH (22:08)
[2019-09-29 05:40] VITALS: BP 155/86
[2019-09-29] MEDS: MAGNESIUM OXIDE 400 MG TAB (MAG-OX) PO SCH (09:22)
[2019-09-29] MEDS: APIXABAN 5 MG TAB (ELIQUIS) PO SCH ×2 (09:22→20:00)
[2019-09-29] MEDS: PANTOPRAZOLE 40MG TAB (PROTONIX) PO SCH (09:22)
[2019-09-29] MEDS: SERTRALINE 100 MG TAB PO SCH (09:22)
[2019-09-29] MEDS: DOCUSATE SODIUM 100 MG CAP PO SCH ×2 (09:22→19:59)
[2019-09-29] MEDS: levETIRAcetam 250MG TABLET (KEPPRA) PO SCH ×2 (09:22→20:00)
[2019-09-29 14:00] VITALS: BP 137/55
[2019-09-29] MEDS: LATANOPROST 0.005% OPHTH SOLN 2.5 ML OU SCH (20:00)
[2019-09-29] MEDS: SENNA 8.6 MG TAB (SENOKOT) PO SCH (20:00)
[2019-09-29 20:04] VITALS: BP 152/60
[2019-09-30 06:00] VITALS: BP 131/72
[2019-09-30] MEDS: MAGNESIUM OXIDE 400 MG TAB (MAG-OX) PO SCH (07:35)
[2019-09-30] MEDS: SERTRALINE 100 MG TAB PO SCH (07:35)
[2019-09-30] MEDS: PANTOPRAZOLE 40MG TAB (PROTONIX) PO SCH (07:35)
[2019-09-30] MEDS: APIXABAN 5 MG TAB (ELIQUIS) PO SCH ×2 (07:35→20:16)
[2019-09-30] MEDS: levETIRAcetam 250MG TABLET (KEPPRA) PO SCH ×2 (07:35→20:16)
[2019-09-30] MEDS: DOCUSATE SODIUM 100 MG CAP PO SCH ×2 (07:36→20:16)
[2019-09-30 14:11] VITALS: BP 160/83
--- NOTE | 2019-09-30 18:05 | IPNPDOC ---
PM&R Progress Note DATE OF SERVICE: Sep 27, 2019 Nascar Driver Progress Note Subjective: Patient seen walking in therapy, smiling stating she feels ok. She was encouraged to lift up her right foot. REVIEW OF SYSTEMS: The following is a completed review of systems and has been reviewed. Review of systems otherwise unremarkable. PAIN: Patient self reports no pain EYES: No recent vision changes EARS, NOSE, & THROAT: No throat pain, or dysphagia, or rhinorrhea CARDIOVASCULAR: Denies chest pain or palpitations PULMONARY: Denies shortness of breath at rest GASTROINTESTINAL: Denies constipation/diarrhea GENITOURINARY: denies dysuria MUSCULOSKELETAL: mild right sided weakness NEUROLOGICAL:+SAH and hx of seizures HEMATOLOGICAL: denies easy bruising SKIN: right temporal ecchymosis PSYCHIATRIC: Unremarkable All other review of systems found to be negative. PHYSICAL EXAMINATION: VITAL SIGNS: Please see below. GENERAL: Pleasant and cooperative. No acute distress. HEENT: PERRL. Extraocular movements intact. Clear conjunctiva CARDIOVASCULAR: Regular rate and rhythm. No murmurs, rubs, or gallops LUNGS: Clear to auscultation bilaterally. No wheezes. No rhonchi ABDOMEN: Soft, nontender, nondistended. Positive bowel sounds. Normal active bowel sounds NEUROLOGICAL: Alert and oriented times three. Cranial nerves II through XII grossly intact. Sensation grossly intact in all 4 limbs EXTREMITIES: 5\5 strength bilateral upper extremities. 5\5 strength right lower extremity (apraxic right LE). 5/5 strength in left lower extremity. SKIN: right temporal ecchymosis ASSESSMENT:74-year-old F with past medical history of seizure disorder who presents status post fall with traumatic SAH found to have bilat PE and DVTs. PLAN: 1. 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 CArdio/Vasc: patient with bilat PEs and DVTs c/u Eliquis, monitor for bleeding -recent ECHO with diastolic CHF, c/u fluid restrict to 1800cc 4. Resp: c/u 02 in setting of PE, encourage incentive spirometry 5. GI ppx: protonix 6. DVT: on eliquis full dose 7. Psych: hx of depression- c/u ZOloft 9. Pain: tylenol prn 10. Dispo: TBD Allergies Coded Allergies: TAPE (Verified Allergy, Intermediate, rash, 12/03/18) Penicillins (Verified Allergy, Unknown, 09/17/19) codeine (Verified Adverse Reaction, Mild, GI DISTRESS, 09/17/19) Vital Signs Vital Signs Date Time Temp Pulse Resp B/P (MAP) Pulse Ox O2 Delivery O2 Flow Rate FiO2 09/30/19 14:11 98.3 88 18 160/83 (108) 95 Room Air 09/28/19 21:00 2.0 Current Medications Current Medications Current Medications Medications (Trade) Dose Ordered Sig/Juanpablo Route PRN Reason Start Time Stop Time Status Last Admin Dose Admin Acetaminophen (Tylenol Tab) 650 mg Q4HP PRN PO MILD PAIN (PS 1-4) 09/25/19 17:30 09/27/19 14:44 Apixaban (Eliquis) 5 mg BID PO 10/02/19 09:00 Apixaban (Eliquis) 10 mg BID PO 09/25/19 21:00 10/01/19 23:59 09/30/19 07:35 Bisacodyl (Dulcolax Tab) 5 mg DAILYPRN PRN PO CONSTIPATION 09/25/19 17:30 Docusate Sodium (Colace) 100 mg BID PO 09/25/19 21:00 09/29/19 19:59 Home Med (Med Rec Complete!) ASDIRECTED XX 09/25/19 17:15 09/25/19 17:20 DC Latanoprost (Xalatan 0.005% Op Soln) 1 drop QHS OU 09/25/19 21:00 09/29/19 20:00 Levetiracetam (Keppra) 750 mg BID PO 09/25/19 21:00 09/30/19 07:35 Magnesium Hydroxide (Milk Of Magnesia) 30 ml DAILYPRN PRN PO CONSTIPATION 09/25/19 17:30 Magnesium Oxide (Mag-Ox) 400 mg DAILY PO 09/26/19 09:00 09/30/19 07:35 Pantoprazole Sodium (Protonix) 40 mg DAILY PO 09/26/19 09:00 09/30/19 07:35 Senna (Senokot) 1 tab QHS PO 09/25/19 21:00 09/29/19 20:00 Sertraline HCl (Zoloft) 100 mg DAILY PO 09/26/19 09:00 09/30/19 07:35 Trazodone HCl (Desyrel) 25 mg QHSP PRN PO INSOMNIA 09/26/19 15:00 PAMELA MUNIZ MD Sep 30, 2019 18:05
--- NOTE | 2019-09-30 18:06 | IPNPDOC ---
PM&R Progress Note DATE OF SERVICE: Sep 30, 2019 Head Setter Progress Note Subjective: Patient seen in her room stating her legs feel swollen. She is worried about her heart failure. REVIEW OF SYSTEMS: The following is a completed review of systems and has been reviewed. Review of systems otherwise unremarkable. PAIN: Patient self reports no pain EYES: No recent vision changes EARS, NOSE, & THROAT: No throat pain, or dysphagia, or rhinorrhea CARDIOVASCULAR: Denies chest pain or palpitations PULMONARY: Denies shortness of breath at rest GASTROINTESTINAL: Denies constipation/diarrhea GENITOURINARY: denies dysuria MUSCULOSKELETAL: mild right sided weakness NEUROLOGICAL:+SAH and hx of seizures HEMATOLOGICAL: denies easy bruising SKIN: right temporal ecchymosis PSYCHIATRIC: Unremarkable All other review of systems found to be negative. PHYSICAL EXAMINATION: VITAL SIGNS: Please see below. GENERAL: Pleasant and cooperative. No acute distress. HEENT: PERRL. Extraocular movements intact. Clear conjunctiva CARDIOVASCULAR: Regular rate and rhythm. No murmurs, rubs, or gallops LUNGS: Clear to auscultation bilaterally. No wheezes. No rhonchi ABDOMEN: Soft, nontender, nondistended. Positive bowel sounds. Normal active bowel sounds NEUROLOGICAL: Alert and oriented times three. Cranial nerves II through XII grossly intact. Sensation grossly intact in all 4 limbs EXTREMITIES: 5\5 strength bilateral upper extremities. 5\5 strength right lower extremity (apraxic right LE). 5/5 strength in left lower extremity. SKIN: right temporal ecchymosis ASSESSMENT:74-year-old F with past medical history of seizure disorder who presents status post fall with traumatic SAH found to have bilat PE and DVTs. PLAN: 1. 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 CArdio/Vasc: patient with bilat PEs and DVTs c/u Eliquis, monitor for bleeding -recent ECHO with diastolic CHF, c/u fluid restrict to 1800cc -patient with elevated BPs, will start metoprolol 4. Resp: weaned off 02, monitor in setting of PE, encourage incentive spirometry 5. GI ppx: protonix 6. DVT: on eliquis full dose 7. Psych: hx of depression- c/u ZOloft 9. Pain: tylenol prn 10. Dispo: TBD Allergies Coded Allergies: TAPE (Verified Allergy, Intermediate, rash, 12/03/18) Penicillins (Verified Allergy, Unknown, 09/17/19) codeine (Verified Adverse Reaction, Mild, GI DISTRESS, 09/17/19) Vital Signs Vital Signs Date Time Temp Pulse Resp B/P (MAP) Pulse Ox O2 Delivery O2 Flow Rate FiO2 09/30/19 14:11 98.3 88 18 160/83 (108) 95 Room Air 09/28/19 21:00 2.0 Current Medications Current Medications Current Medications Medications (Trade) Dose Ordered Sig/Juanpablo Route PRN Reason Start Time Stop Time Status Last Admin Dose Admin Acetaminophen (Tylenol Tab) 650 mg Q4HP PRN PO MILD PAIN (PS 1-4) 09/25/19 17:30 09/27/19 14:44 Apixaban (Eliquis) 5 mg BID PO 10/02/19 09:00 Apixaban (Eliquis) 10 mg BID PO 09/25/19 21:00 10/01/19 23:59 09/30/19 07:35 Bisacodyl (Dulcolax Tab) 5 mg DAILYPRN PRN PO CONSTIPATION 09/25/19 17:30 Docusate Sodium (Colace) 100 mg BID PO 09/25/19 21:00 09/29/19 19:59 Home Med (Med Rec Complete!) ASDIRECTED XX 09/25/19 17:15 09/25/19 17:20 DC Latanoprost (Xalatan 0.005% Op Soln) 1 drop QHS OU 09/25/19 21:00 09/29/19 20:00 Levetiracetam (Keppra) 750 mg BID PO 09/25/19 21:00 09/30/19 07:35 Magnesium Hydroxide (Milk Of Magnesia) 30 ml DAILYPRN PRN PO CONSTIPATION 09/25/19 17:30 Magnesium Oxide (Mag-Ox) 400 mg DAILY PO 09/26/19 09:00 09/30/19 07:35 Pantoprazole Sodium (Protonix) 40 mg DAILY PO 09/26/19 09:00 09/30/19 07:35 Senna (Senokot) 1 tab QHS PO 09/25/19 21:00 09/29/19 20:00 Sertraline HCl (Zoloft) 100 mg DAILY PO 09/26/19 09:00 09/30/19 07:35 Trazodone HCl (Desyrel) 25 mg QHSP PRN PO INSOMNIA 09/26/19 15:00 PAMELA MUNIZ MD Sep 30, 2019 18:06
[2019-09-30] MEDS: SENNA 8.6 MG TAB (SENOKOT) PO SCH (20:16)
[2019-09-30] MEDS: LATANOPROST 0.005% OPHTH SOLN 2.5 ML OU SCH (20:17)
[2019-09-30] MEDS: METOPROLOL TART 25 MG TABLET PO SCH (20:17)
[2019-09-30 20:36] VITALS: BP 150/70
[2019-10-01 05:18] VITALS: BP 143/77
[2019-10-01] MEDS: METOPROLOL TART 25 MG TABLET PO SCH (05:30)
[2019-10-01 06:06] LABS: BASO # 0.1 10^3/uL (0.0-0.2); BASO % 1.6 % (0.0-1.0); EOS # 0.3 10^3/uL (0.0-0.5); EOS % 3.6 % (0.0-3.0); HEMATOCRIT 34.7 % (36.0-47.0); HEMOGLOBIN 11.3 g/dl (12.0-15.5); LYMPH # 1.1 10^3/uL (1.5-5.0); LYMPH % 15.8 % (24.0-44.0); MEAN CORPUSCULAR HGB CONC 32.6 g/dl (32.0-36.5); MEAN CORPUSCULAR VOLUME 95.1 fl (80.0-96.0); MONO # 0.7 10^3/uL (0.0-0.8); MONO % 9.6 % (0.0-5.0); NEUTROPHILS # 4.8 10^3/uL (1.5-8.5); NEUTROPHILS % 69.1 % (36.0-66.0); PLATELET COUNT, AUTOMATED 374 10^3/uL (150-450); RED BLOOD COUNT 3.65 10^6/uL (4.00-5.40); WHITE BLOOD COUNT 6.9 10^3/uL (4.0-10.0)
[2019-10-01 06:30] LABS: BLOOD UREA NITROGEN 8 MG/DL (7-18); CALCIUM LEVEL 8.3 MG/DL (8.8-10.2); CARBON DIOXIDE LEVEL 27 MEQ/L (21-32); CHLORIDE LEVEL 109 MEQ/L (98-107); CREATININE FOR GFR 0.51 MG/DL (0.55-1.30); GLOMERULAR FILTRATION RATE > 60.0 (>39); GLUCOSE, FASTING 102 MG/DL (70-100); POTASSIUM SERUM 3.5 MEQ/L (3.5-5.1); SODIUM LEVEL 141 MEQ/L (136-145)
[2019-10-01] MEDS: SERTRALINE 100 MG TAB PO SCH (08:23)
[2019-10-01] MEDS: levETIRAcetam 250MG TABLET (KEPPRA) PO SCH ×2 (08:23→20:33)
[2019-10-01] MEDS: APIXABAN 5 MG TAB (ELIQUIS) PO SCH (08:23)
[2019-10-01] MEDS: DOCUSATE SODIUM 100 MG CAP PO SCH ×2 (08:24→20:34)
[2019-10-01] MEDS: PANTOPRAZOLE 40MG TAB (PROTONIX) PO SCH (08:24)
[2019-10-01] MEDS: MAGNESIUM OXIDE 400 MG TAB (MAG-OX) PO SCH (08:24)
[2019-10-01] MEDS: METOPROLOL SUCC *XL* 25MG TAB (TopROL *XL*) PO SCH (10:47)
[2019-10-01] MEDS: FUROSEMIDE 40 MG TAB PO SCH (10:47)
--- NOTE | 2019-10-01 12:30 | IPNPDOC ---
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 She is asking that her new medications be discussed with her PMD Dr. Ruelas. REVIEW OF SYSTEMS: The following is a completed review of systems and has been reviewed. Review of systems otherwise unremarkable. PAIN: Patient self reports no pain EYES: No recent vision changes EARS, NOSE, & THROAT: No throat pain, or dysphagia, or rhinorrhea CARDIOVASCULAR: Denies chest pain or palpitations PULMONARY: Denies shortness of breath at rest GASTROINTESTINAL: Denies constipation/diarrhea GENITOURINARY: denies dysuria MUSCULOSKELETAL: mild right sided weakness NEUROLOGICAL:+SAH and hx of seizures HEMATOLOGICAL: denies easy bruising SKIN: right temporal ecchymosis PSYCHIATRIC: Unremarkable All other review of systems found to be negative. PHYSICAL EXAMINATION: VITAL SIGNS: Please see below. GENERAL: Pleasant and cooperative. No acute distress. HEENT: PERRL. Extraocular movements intact. Clear conjunctiva CARDIOVASCULAR: Regular rate and rhythm. No murmurs, rubs, or gallops LUNGS: Clear to auscultation bilaterally. No wheezes. No rhonchi ABDOMEN: Soft, nontender, nondistended. Positive bowel sounds. Normal active bowel sounds NEUROLOGICAL: Alert and oriented times three. Cranial nerves II through XII grossly intact. Sensation grossly intact in all 4 limbs EXTREMITIES: 5\5 strength bilateral upper extremities. 5\5 strength right lower extremity (apraxic right LE). 5/5 strength in left lower extremity. SKIN: right temporal ecchymosis ASSESSMENT:74-year-old F with past medical history of seizure disorder who presents status post fall with traumatic SAH found to have bilat PE and DVTs. PLAN: 1. 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 CArdio/Vasc: patient with bilat PEs and DVTs c/u Eliquis, monitor for bleeding -recent ECHO with diastolic CHF, c/u fluid restrict to 1800cc -patient with elevated BPs and bilat LE swelling, c/u metoprolol 25mg daily, c/u lasix 40 daily, and low dose [id number] in setting of diastolic CHF-discussed case and plan with PMD Dr. Ruelas who agrees with management 4. Resp: weaned off 02, monitor in setting of PE, encourage incentive spirometry 5. GI ppx: protonix 6. DVT: on eliquis full dose 7. Psych: hx of depression- c/u ZOloft 9. Pain: tylenol prn 10. Dispo: TBD Allergies Coded Allergies: TAPE (Verified Allergy, Intermediate, rash, 12/03/18) Penicillins (Verified Allergy, Unknown, 09/17/19) codeine (Verified Adverse Reaction, Mild, GI DISTRESS, 09/17/19) Vital Signs Vital Signs Date Time Temp Pulse Resp B/P (MAP) Pulse Ox O2 Delivery O2 Flow Rate FiO2 10/01/19 10:47 69 142/65 10/01/19 05:18 97.8 20 94 Room Air 09/28/19 21:00 2.0 Laboratory Data CBC/BMP Laboratory Tests 10/01/19 05:50 Labs 24H Laboratory Tests 2 10/01/19 05:50: Immature Granulocyte % (Auto) 0.3, Neutrophils (%) (Auto) 69.1H, Lymphocytes (%) (Auto) 15.8L, Monocytes (%) (Auto) 9.6H, Eosinophils (%) (Auto) 3.6H, Basophils (%) (Auto) 1.6H, Neutrophils # (Auto) 4.8, Lymphocytes # (Auto) 1.1L, Monocytes # (Auto) 0.7, Eosinophils # (Auto) 0.3, Basophils # (Auto) 0.1, Nucleated Red Blood Cells % (auto) 0.0, Anion Gap 5L, Glomerular Filtration Rate > 60.0, Calcium Level 8.3L Current Medications Current Medications Current Medications Medications (Trade) Dose Ordered Sig/Juanpablo Route PRN Reason Start Time Stop Time Status Last Admin Dose Admin Acetaminophen (Tylenol Tab) 650 mg Q4HP PRN PO MILD PAIN (PS 1-4) 09/25/19 17:30 09/27/19 14:44 Apixaban (Eliquis) 5 mg BID PO 10/02/19 09:00 Apixaban (Eliquis) 10 mg BID PO 09/25/19 21:00 10/01/19 10:49 DC 10/01/19 08:23 Bisacodyl (Dulcolax Tab) 5 mg DAILYPRN PRN PO CONSTIPATION 09/25/19 17:30 Docusate Sodium (Colace) 100 mg BID PO 09/25/19 21:00 09/30/19 20:16 Furosemide (Lasix) 40 mg DAILY PO 10/01/19 09:00 10/01/19 10:47 Home Med (Med Rec Complete!) ASDIRECTED XX 09/25/19 17:15 09/25/19 17:20 DC Latanoprost (Xalatan 0.005% Op Soln) 1 drop QHS OU 09/25/19 21:00 09/30/19 20:17 Levetiracetam (Keppra) 750 mg BID PO 09/25/19 21:00 10/01/19 08:23 Lisinopril (Prinivil) 5 mg QHS PO 10/01/19 21:00 Magnesium Hydroxide (Milk Of Magnesia) 30 ml DAILYPRN PRN PO CONSTIPATION 09/25/19 17:30 Magnesium Oxide (Mag-Ox) 400 mg DAILY PO 09/26/19 09:00 10/01/19 08:24 Metoprolol Succinate (TopROL XL) 25 mg DAILY PO 10/01/19 09:00 10/01/19 10:47 Metoprolol Tartrate (Lopressor) 25 mg Q8H PO 09/30/19 22:00 10/01/19 09:34 DC 10/01/19 05:30 Pantoprazole Sodium (Protonix) 40 mg DAILY PO 09/26/19 09:00 10/01/19 08:24 Senna (Senokot) 1 tab QHS PO 09/25/19 21:00 09/30/19 20:16 Sertraline HCl (Zoloft) 100 mg DAILY PO 09/26/19 09:00 10/01/19 08:23 Trazodone HCl (Desyrel) 25 mg QHSP PRN PO INSOMNIA 09/26/19 15:00 PAMELA MUNIZ MD Oct 01, 2019 12:30
[2019-10-01 13:59] VITALS: BP 133/63
[2019-10-01 20:00] VITALS: BP 149/79
[2019-10-01] MEDS: lisinopriL 5 MG TAB PO SCH (20:33)
[2019-10-01] MEDS: SENNA 8.6 MG TAB (SENOKOT) PO SCH (20:33)
[2019-10-01] MEDS: LATANOPROST 0.005% OPHTH SOLN 2.5 ML OU SCH (20:34)
[2019-10-02 06:00] VITALS: BP 137/78
[2019-10-02] MEDS: SERTRALINE 100 MG TAB PO SCH (08:27)
[2019-10-02] MEDS: MAGNESIUM OXIDE 400 MG TAB (MAG-OX) PO SCH (08:27)
[2019-10-02] MEDS: DOCUSATE SODIUM 100 MG CAP PO SCH ×2 (08:28→20:35)
[2019-10-02] MEDS: APIXABAN 5 MG TAB (ELIQUIS) PO SCH ×2 (08:28→20:35)
[2019-10-02] MEDS: levETIRAcetam 250MG TABLET (KEPPRA) PO SCH ×2 (08:28→20:35)
[2019-10-02] MEDS: FUROSEMIDE 40 MG TAB PO SCH (08:28)
[2019-10-02] MEDS: PANTOPRAZOLE 40MG TAB (PROTONIX) PO SCH (08:28)
[2019-10-02] MEDS: METOPROLOL SUCC *XL* 25MG TAB (TopROL *XL*) PO SCH (08:28)
--- NOTE | 2019-10-02 12:44 | IPNPDOC ---
PM&R Progress Note DATE OF SERVICE: Oct 02, 2019 Mainframe Analyst Progress Note Subjective: Patient seen in her room expressing ambivalence about going home before the weekend. She feels her legs are a little less swollen and is agreeable to room privileges. REVIEW OF SYSTEMS: The following is a completed review of systems and has been reviewed. Review of systems otherwise unremarkable. PAIN: Patient self reports no pain EYES: No recent vision changes EARS, NOSE, & THROAT: No throat pain, or dysphagia, or rhinorrhea CARDIOVASCULAR: Denies chest pain or palpitations PULMONARY: Denies shortness of breath at rest GASTROINTESTINAL: Denies constipation/diarrhea GENITOURINARY: denies dysuria MUSCULOSKELETAL: mild right sided weakness NEUROLOGICAL:+SAH and hx of seizures HEMATOLOGICAL: denies easy bruising SKIN: right temporal ecchymosis PSYCHIATRIC: Unremarkable All other review of systems found to be negative. PHYSICAL EXAMINATION: VITAL SIGNS: Please see below. GENERAL: Pleasant and cooperative. No acute distress. HEENT: PERRL. Extraocular movements intact. Clear conjunctiva CARDIOVASCULAR: Regular rate and rhythm. No murmurs, rubs, or gallops LUNGS: Clear to auscultation bilaterally. No wheezes. No rhonchi ABDOMEN: Soft, nontender, nondistended. Positive bowel sounds. Normal active bowel sounds NEUROLOGICAL: Alert and oriented times three. Cranial nerves II through XII grossly intact. Sensation grossly intact in all 4 limbs EXTREMITIES: 5\5 strength bilateral upper extremities. 5\5 strength right lower extremity (apraxic right LE). 5/5 strength in left lower extremity. SKIN: right temporal ecchymosis ASSESSMENT:74-year-old F with past medical history of seizure disorder who presents status post fall with traumatic SAH found to have bilat PE and DVTs. PLAN: 1. 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 CArdio/Vasc: patient with bilat PEs and DVTs c/u Eliquis, monitor for bleeding -recent ECHO with diastolic CHF, c/u fluid restrict to 1800cc -patient with elevated BPs and bilat LE swelling, c/u metoprolol 25mg daily, c/u lasix 40 daily, and low dose REJI-I in setting of diastolic CHF-discussed case and plan with PMD Dr. Ruelas who agrees with management- LE edema better today 4. Resp: weaned off 02, monitor in setting of PE, encourage incentive spirometry 5. GI ppx: protonix 6. DVT: on eliquis full dose 7. Psych: hx of depression- c/u ZOloft 9. Pain: tylenol prn 10. Dispo: 10-08-19 to home, progressing towards goals Allergies Coded Allergies: TAPE (Verified Allergy, Intermediate, rash, 12/03/18) Penicillins (Verified Allergy, Unknown, 09/17/19) codeine (Verified Adverse Reaction, Mild, GI DISTRESS, 09/17/19) Vital Signs Vital Signs Date Time Temp Pulse Resp B/P (MAP) Pulse Ox O2 Delivery O2 Flow Rate FiO2 10/02/19 08:28 71 137/78 10/02/19 06:00 97.8 18 94 Room Air 09/28/19 21:00 2.0 Current Medications Current Medications Current Medications Medications (Trade) Dose Ordered Sig/Juanpablo Route PRN Reason Start Time Stop Time Status Last Admin Dose Admin Acetaminophen (Tylenol Tab) 650 mg Q4HP PRN PO MILD PAIN (PS 1-4) 09/25/19 17:30 09/27/19 14:44 Apixaban (Eliquis) 5 mg BID PO 10/02/19 09:00 10/02/19 08:28 Apixaban (Eliquis) 10 mg BID PO 09/25/19 21:00 10/01/19 10:49 DC 10/01/19 08:23 Bisacodyl (Dulcolax Tab) 5 mg DAILYPRN PRN PO CONSTIPATION 09/25/19 17:30 Docusate Sodium (Colace) 100 mg BID PO 09/25/19 21:00 09/30/19 20:16 Furosemide (Lasix) 40 mg DAILY PO 10/01/19 09:00 10/02/19 08:28 Home Med (Med Rec Complete!) ASDIRECTED XX 09/25/19 17:15 09/25/19 17:20 DC Latanoprost (Xalatan 0.005% Op Soln) 1 drop QHS OU 09/25/19 21:00 10/01/19 20:34 Levetiracetam (Keppra) 750 mg BID PO 09/25/19 21:00 10/02/19 08:28 Lisinopril (Prinivil) 5 mg QHS PO 10/01/19 21:00 10/01/19 20:33 Magnesium Hydroxide (Milk Of Magnesia) 30 ml DAILYPRN PRN PO CONSTIPATION 09/25/19 17:30 Magnesium Oxide (Mag-Ox) 400 mg DAILY PO 09/26/19 09:00 10/02/19 08:27 Metoprolol Succinate (TopROL XL) 25 mg DAILY PO 10/01/19 09:00 10/02/19 08:28 Metoprolol Tartrate (Lopressor) 25 mg Q8H PO 09/30/19 22:00 10/01/19 09:34 DC 10/01/19 05:30 Pantoprazole Sodium (Protonix) 40 mg DAILY PO 09/26/19 09:00 10/02/19 08:28 Senna (Senokot) 1 tab QHS PO 09/25/19 21:00 09/30/19 20:16 Sertraline HCl (Zoloft) 100 mg DAILY PO 09/26/19 09:00 10/02/19 08:27 Trazodone HCl (Desyrel) 25 mg QHSP PRN PO INSOMNIA 09/26/19 15:00 PAMELA MUNIZ MD Oct 02, 2019 12:44
[2019-10-02 14:00] VITALS: BP 138/74
[2019-10-02] MEDS: SENNA 8.6 MG TAB (SENOKOT) PO SCH (20:35)
[2019-10-02] MEDS: lisinopriL 5 MG TAB PO SCH (20:35)
[2019-10-02] MEDS: LATANOPROST 0.005% OPHTH SOLN 2.5 ML OU SCH (20:36)
[2019-10-02 20:45] VITALS: BP 156/73
[2019-10-03 06:00] VITALS: BP 128/66
[2019-10-03 06:47] LABS: BASO # 0.1 10^3/uL (0.0-0.2); BASO % 1.4 % (0.0-1.0); EOS # 0.2 10^3/uL (0.0-0.5); EOS % 3.6 % (0.0-3.0); HEMATOCRIT 37.9 % (36.0-47.0); HEMOGLOBIN 11.9 g/dl (12.0-15.5); LYMPH # 1.1 10^3/uL (1.5-5.0); LYMPH % 18.4 % (24.0-44.0); MEAN CORPUSCULAR HEMOGLOBIN 30.3 pg (27.0-33.0); MEAN CORPUSCULAR HGB CONC 31.4 g/dl (32.0-36.5); MEAN CORPUSCULAR VOLUME 96.4 fl (80.0-96.0); MONO # 0.6 10^3/uL (0.0-0.8); MONO % 9.7 % (0.0-5.0); NEUTROPHILS # 3.9 10^3/uL (1.5-8.5); NEUTROPHILS % 66.4 % (36.0-66.0); PLATELET COUNT, AUTOMATED 443 10^3/uL (150-450); RED BLOOD COUNT 3.93 10^6/uL (4.00-5.40); WHITE BLOOD COUNT 5.9 10^3/uL (4.0-10.0)
[2019-10-03 07:12] LABS: BLOOD UREA NITROGEN 8 MG/DL (7-18); CALCIUM LEVEL 8.9 MG/DL (8.8-10.2); CARBON DIOXIDE LEVEL 28 MEQ/L (21-32); CHLORIDE LEVEL 104 MEQ/L (98-107); CREATININE FOR GFR 0.62 MG/DL (0.55-1.30); GLOMERULAR FILTRATION RATE > 60.0 (>39); GLUCOSE, FASTING 94 MG/DL (70-100); POTASSIUM SERUM 3.3 MEQ/L (3.5-5.1); SODIUM LEVEL 141 MEQ/L (136-145)
[2019-10-03] MEDS ORDERED: POTASSIUM CHLORIDE 10 MEQ SR TABLET PO ONE (08:30)
[2019-10-03] MEDS: DOCUSATE SODIUM 100 MG CAP PO SCH ×2 (09:00→20:04)
[2019-10-03] MEDS: levETIRAcetam 250MG TABLET (KEPPRA) PO SCH ×2 (09:58→20:18)
[2019-10-03] MEDS: APIXABAN 5 MG TAB (ELIQUIS) PO SCH ×2 (09:58→20:18)
[2019-10-03] MEDS: PANTOPRAZOLE 40MG TAB (PROTONIX) PO SCH (09:59)
[2019-10-03] MEDS: MAGNESIUM OXIDE 400 MG TAB (MAG-OX) PO SCH (10:00)
[2019-10-03] MEDS: SERTRALINE 100 MG TAB PO SCH (10:00)
[2019-10-03] MEDS: METOPROLOL SUCC *XL* 25MG TAB (TopROL *XL*) PO SCH (10:01)
[2019-10-03] MEDS: FUROSEMIDE 20 MG TAB PO SCH (10:01)
--- NOTE | 2019-10-03 11:49 | IPNPDOC ---
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 She is not sure how she is going to get more pillows to prop herself up in bed when she is home. REVIEW OF SYSTEMS: The following is a completed review of systems and has been reviewed. Review of systems otherwise unremarkable. PAIN: Patient self reports no pain EYES: No recent vision changes EARS, NOSE, & THROAT: No throat pain, or dysphagia, or rhinorrhea CARDIOVASCULAR: Denies chest pain or palpitations PULMONARY: Denies shortness of breath at rest GASTROINTESTINAL: Denies constipation/diarrhea GENITOURINARY: denies dysuria MUSCULOSKELETAL: mild right sided weakness NEUROLOGICAL:+SAH and hx of seizures HEMATOLOGICAL: denies easy bruising SKIN: right temporal ecchymosis PSYCHIATRIC: Unremarkable All other review of systems found to be negative. PHYSICAL EXAMINATION: VITAL SIGNS: Please see below. GENERAL: Pleasant and cooperative. No acute distress. HEENT: PERRL. Extraocular movements intact. Clear conjunctiva CARDIOVASCULAR: Regular rate and rhythm. No murmurs, rubs, or gallops LUNGS: Clear to auscultation bilaterally. No wheezes. No rhonchi ABDOMEN: Soft, nontender, nondistended. Positive bowel sounds. Normal active bowel sounds NEUROLOGICAL: Alert and oriented times three. Cranial nerves II through XII grossly intact. Sensation grossly intact in all 4 limbs EXTREMITIES: 5\5 strength bilateral upper extremities. 5\5 strength right lower extremity (apraxic right LE). 5/5 strength in left lower extremity. SKIN: right temporal ecchymosis ASSESSMENT:74-year-old F with past medical history of seizure disorder who presents status post fall with traumatic SAH found to have bilat PE and DVTs. PLAN: 1. 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 CArdio/Vasc: patient with bilat PEs and DVTs c/u Eliquis, monitor for bleeding -recent ECHO with diastolic CHF, c/u fluid restrict to 1800cc -patient with elevated BPs and bilat LE swelling, c/u metoprolol 25mg daily, c/u lasix will lower to 20mg, and low dose REJI-I in setting of diastolic CHF- discussed case and plan with PMD Dr. Ruelas who agrees with management- LE edema better today -hypokalemia will give one time dose potassium and lower lasix dosing from 40-->20 daily 4. Resp: weaned off 02, monitor in setting of PE, encourage incentive spirometry 5. GI ppx: protonix 6. DVT: on eliquis full dose 7. Psych: hx of depression- c/u ZOloft 9. Pain: tylenol prn 10. Dispo: 10-08-19 to home, progressing towards goals Allergies Coded Allergies: TAPE (Verified Allergy, Intermediate, rash, 12/03/18) Penicillins (Verified Allergy, Unknown, 09/17/19) codeine (Verified Adverse Reaction, Mild, GI DISTRESS, 09/17/19) Vital Signs Vital Signs Date Time Temp Pulse Resp B/P (MAP) Pulse Ox O2 Delivery O2 Flow Rate FiO2 10/03/19 10:01 72 130/68 10/03/19 06:00 99.2 18 93 Room Air 10/02/19 21:00 0.0 Laboratory Data CBC/BMP Laboratory Tests 10/03/19 06:33 Labs 24H Laboratory Tests 2 10/03/19 06:33: Immature Granulocyte % (Auto) 0.5, Neutrophils (%) (Auto) 66.4H, Lymphocytes (%) (Auto) 18.4L, Monocytes (%) (Auto) 9.7H, Eosinophils (%) (Auto) 3.6H, Basophils (%) (Auto) 1.4H, Neutrophils # (Auto) 3.9, Lymphocytes # (Auto) 1.1L, Monocytes # (Auto) 0.6, Eosinophils # (Auto) 0.2, Basophils # (Auto) 0.1, Nucleated Red Blood Cells % (auto) 0.0, Anion Gap 9, Glomerular Filtration Rate > 60.0, Calcium Level 8.9 Current Medications Current Medications Current Medications Medications (Trade) Dose Ordered Sig/Juanpablo Route PRN Reason Start Time Stop Time Status Last Admin Dose Admin Acetaminophen (Tylenol Tab) 650 mg Q4HP PRN PO MILD PAIN (PS 1-4) 09/25/19 17:30 09/27/19 14:44 Apixaban (Eliquis) 5 mg BID PO 10/02/19 09:00 10/03/19 09:58 Apixaban (Eliquis) 10 mg BID PO 09/25/19 21:00 10/01/19 10:49 DC 10/01/19 08:23 Bisacodyl (Dulcolax Tab) 5 mg DAILYPRN PRN PO CONSTIPATION 09/25/19 17:30 Docusate Sodium (Colace) 100 mg BID PO 09/25/19 21:00 09/30/19 20:16 Furosemide (Lasix) 20 mg DAILY PO 10/03/19 09:00 10/03/19 10:01 Furosemide (Lasix) 40 mg DAILY PO 10/01/19 09:00 10/03/19 08:19 DC 10/02/19 08:28 Home Med (Med Rec Complete!) ASDIRECTED XX 09/25/19 17:15 09/25/19 17:20 DC Latanoprost (Xalatan 0.005% Op Soln) 1 drop QHS OU 09/25/19 21:00 10/02/19 20:36 Levetiracetam (Keppra) 750 mg BID PO 09/25/19 21:00 10/03/19 09:58 Lisinopril (Prinivil) 5 mg QHS PO 10/01/19 21:00 10/02/19 20:35 Magnesium Hydroxide (Milk Of Magnesia) 30 ml DAILYPRN PRN PO CONSTIPATION 09/25/19 17:30 Magnesium Oxide (Mag-Ox) 400 mg DAILY PO 09/26/19 09:00 10/03/19 10:00 Metoprolol Succinate (TopROL XL) 25 mg DAILY PO 10/01/19 09:00 10/03/19 10:01 Metoprolol Tartrate (Lopressor) 25 mg Q8H PO 09/30/19 22:00 10/01/19 09:34 DC 10/01/19 05:30 Pantoprazole Sodium (Protonix) 40 mg DAILY PO 09/26/19 09:00 10/03/19 09:59 Senna (Senokot) 1 tab QHS PO 09/25/19 21:00 09/30/19 20:16 Sertraline HCl (Zoloft) 100 mg DAILY PO 09/26/19 09:00 10/03/19 10:00 Trazodone HCl (Desyrel) 25 mg QHSP PRN PO INSOMNIA 09/26/19 15:00 PAMELA MUNIZ MD Oct 03, 2019 11:49
[2019-10-03 14:00] VITALS: BP 116/55
[2019-10-03 20:00] VITALS: BP 121/59
[2019-10-03] MEDS: SENNA 8.6 MG TAB (SENOKOT) PO SCH (20:05)
[2019-10-03] MEDS: lisinopriL 5 MG TAB PO SCH (20:18)
[2019-10-03] MEDS: LATANOPROST 0.005% OPHTH SOLN 2.5 ML OU SCH (20:22)
[2019-10-04 06:00] VITALS: BP 128/65
[2019-10-04 07:13] LABS: BLOOD UREA NITROGEN 9 MG/DL (7-18); CALCIUM LEVEL 8.7 MG/DL (8.8-10.2); CARBON DIOXIDE LEVEL 29 MEQ/L (21-32); CHLORIDE LEVEL 107 MEQ/L (98-107); CREATININE FOR GFR 0.56 MG/DL (0.55-1.30); GLOMERULAR FILTRATION RATE > 60.0 (>39); GLUCOSE, FASTING 96 MG/DL (70-100); POTASSIUM SERUM 3.7 MEQ/L (3.5-5.1); SODIUM LEVEL 140 MEQ/L (136-145)
[2019-10-04] MEDS: levETIRAcetam 250MG TABLET (KEPPRA) PO SCH ×2 (08:12→20:24)
[2019-10-04] MEDS: DOCUSATE SODIUM 100 MG CAP PO SCH ×4 (08:13→20:26)
[2019-10-04] MEDS: SERTRALINE 100 MG TAB PO SCH (08:13)
[2019-10-04] MEDS: APIXABAN 5 MG TAB (ELIQUIS) PO SCH ×2 (08:13→20:24)
[2019-10-04] MEDS: FUROSEMIDE 20 MG TAB PO SCH (08:13)
[2019-10-04] MEDS: METOPROLOL SUCC *XL* 25MG TAB (TopROL *XL*) PO SCH (08:13)
[2019-10-04] MEDS: MAGNESIUM OXIDE 400 MG TAB (MAG-OX) PO SCH (08:13)
[2019-10-04] MEDS: PANTOPRAZOLE 40MG TAB (PROTONIX) PO SCH (08:14)
--- NOTE | 2019-10-04 11:23 | IPNPDOC ---
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 REVIEW OF SYSTEMS: The following is a completed review of systems and has been reviewed. Review of systems otherwise unremarkable. PAIN: Patient self reports no pain EYES: No recent vision changes EARS, NOSE, & THROAT: No throat pain, or dysphagia, or rhinorrhea CARDIOVASCULAR: Denies chest pain or palpitations PULMONARY: Denies shortness of breath at rest GASTROINTESTINAL: Denies constipation/diarrhea GENITOURINARY: denies dysuria MUSCULOSKELETAL: mild right sided weakness NEUROLOGICAL:+SAH and hx of seizures HEMATOLOGICAL: denies easy bruising SKIN: right temporal ecchymosis PSYCHIATRIC: Unremarkable All other review of systems found to be negative. PHYSICAL EXAMINATION: VITAL SIGNS: Please see below. GENERAL: Pleasant and cooperative. No acute distress. HEENT: PERRL. Extraocular movements intact. Clear conjunctiva CARDIOVASCULAR: Regular rate and rhythm. No murmurs, rubs, or gallops LUNGS: Clear to auscultation bilaterally. No wheezes. No rhonchi ABDOMEN: Soft, nontender, nondistended. Positive bowel sounds. Normal active bowel sounds NEUROLOGICAL: Alert and oriented times three. Cranial nerves II through XII grossly intact. Sensation grossly intact in all 4 limbs EXTREMITIES: 5\5 strength bilateral upper extremities. 5\5 strength right lower extremity (apraxic right LE). 5/5 strength in left lower extremity. SKIN: right temporal ecchymosis ASSESSMENT:74-year-old F with past medical history of seizure disorder who presents status post fall with traumatic SAH found to have bilat PE and DVTs. PLAN: 1. 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 CArdio/Vasc: patient with bilat PEs and DVTs c/u Eliquis, monitor for ble eding -recent ECHO with diastolic CHF, c/u fluid restrict to 1800cc -patient with elevated BPs and bilat LE swelling, c/u metoprolol 25mg daily, c/u lasix 20mg daily, and low dose REJI-I in setting of diastolic CHF-discussed case and plan with PMD Dr. Ruelas who agrees with management- LE edema continues to improve -hypokalemia resolved, will c/u to monitor while on lasix 4. Resp: weaned off 02, monitor in setting of PE, encourage incentive spirometry 5. GI ppx: protonix 6. DVT: on eliquis full dose 7. Psych: hx of depression- c/u ZOloft 9. Pain: tylenol prn 10. Dispo: 10-08-19 to home, progressing towards goals Allergies Coded Allergies: TAPE (Verified Allergy, Intermediate, rash, 12/03/18) Penicillins (Verified Allergy, Unknown, 09/17/19) codeine (Verified Adverse Reaction, Mild, GI DISTRESS, 09/17/19) Vital Signs Vital Signs Date Time Temp Pulse Resp B/P (MAP) Pulse Ox O2 Delivery O2 Flow Rate FiO2 10/04/19 08:13 80 128/65 10/04/19 06:00 98.4 16 94 Room Air 10/02/19 21:00 0.0 Laboratory Data CBC/BMP Laboratory Tests 10/04/19 06:31 Labs 24H Laboratory Tests 2 10/04/19 06:31: Anion Gap 4L, Glomerular Filtration Rate > 60.0, Calcium Level 8.7L Current Medications Current Medications Current Medications Medications (Trade) Dose Ordered Sig/Juanpablo Route PRN Reason Start Time Stop Time Status Last Admin Dose Admin Acetaminophen (Tylenol Tab) 650 mg Q4HP PRN PO MILD PAIN (PS 1-4) 09/25/19 17:30 09/27/19 14:44 Apixaban (Eliquis) 5 mg BID PO 10/02/19 09:00 10/04/19 08:13 Apixaban (Eliquis) 10 mg BID PO 09/25/19 21:00 10/01/19 10:49 DC 10/01/19 08:23 Bisacodyl (Dulcolax Tab) 5 mg DAILYPRN PRN PO CONSTIPATION 09/25/19 17:30 Docusate Sodium (Colace) 100 mg BID PO 09/25/19 21:00 09/30/19 20:16 Furosemide (Lasix) 20 mg DAILY PO 10/03/19 09:00 10/04/19 08:13 Furosemide (Lasix) 40 mg DAILY PO 10/01/19 09:00 10/03/19 08:19 DC 10/02/19 08:28 Home Med (Med Rec Complete!) ASDIRECTED XX 09/25/19 17:15 09/25/19 17:20 DC Latanoprost (Xalatan 0.005% Op Soln) 1 drop QHS OU 09/25/19 21:00 10/03/19 20:22 Levetiracetam (Keppra) 750 mg BID PO 09/25/19 21:00 10/04/19 08:12 Lisinopril (Prinivil) 5 mg QHS PO 10/01/19 21:00 10/03/19 20:18 Magnesium Hydroxide (Milk Of Magnesia) 30 ml DAILYPRN PRN PO CONSTIPATION 09/25/19 17:30 Magnesium Oxide (Mag-Ox) 400 mg DAILY PO 09/26/19 09:00 10/04/19 08:13 Metoprolol Succinate (TopROL XL) 25 mg DAILY PO 10/01/19 09:00 10/04/19 08:13 Metoprolol Tartrate (Lopressor) 25 mg Q8H PO 09/30/19 22:00 10/01/19 09:34 DC 10/01/19 05:30 Pantoprazole Sodium (Protonix) 40 mg DAILY PO 09/26/19 09:00 10/04/19 08:14 Senna (Senokot) 1 tab QHS PO 09/25/19 21:00 09/30/19 20:16 Sertraline HCl (Zoloft) 100 mg DAILY PO 09/26/19 09:00 10/04/19 08:13 Trazodone HCl (Desyrel) 25 mg QHSP PRN PO INSOMNIA 09/26/19 15:00 PAMELA MUNIZ MD Oct 04, 2019 11:23
[2019-10-04 14:00] VITALS: BP 134/70
[2019-10-04] MEDS: SENNA 8.6 MG TAB (SENOKOT) PO SCH ×2 (20:24→20:27)
[2019-10-04] MEDS: LATANOPROST 0.005% OPHTH SOLN 2.5 ML OU SCH (20:25)
[2019-10-04] MEDS: lisinopriL 5 MG TAB PO SCH (20:25)
[2019-10-04 20:40] VITALS: BP 134/71
[2019-10-05 05:40] VITALS: BP 146/76
[2019-10-05] MEDS: SERTRALINE 100 MG TAB PO SCH (08:09)
[2019-10-05] MEDS: levETIRAcetam 250MG TABLET (KEPPRA) PO SCH ×2 (08:09→20:04)
[2019-10-05] MEDS: PANTOPRAZOLE 40MG TAB (PROTONIX) PO SCH (08:09)
[2019-10-05] MEDS: MAGNESIUM OXIDE 400 MG TAB (MAG-OX) PO SCH (08:09)
[2019-10-05] MEDS: APIXABAN 5 MG TAB (ELIQUIS) PO SCH ×2 (08:09→20:05)
[2019-10-05] MEDS: DOCUSATE SODIUM 100 MG CAP PO SCH ×2 (08:10→20:06)
[2019-10-05] MEDS: FUROSEMIDE 20 MG TAB PO SCH (08:10)
[2019-10-05] MEDS: METOPROLOL SUCC *XL* 25MG TAB (TopROL *XL*) PO SCH (08:10)
[2019-10-05 13:47] VITALS: BP 112/56
--- NOTE | 2019-10-05 18:00 | IPNPDOC ---
Date Seen The patient was seen on 10/05/19. Progress Note SUBJECTIVE: Patient found roaming the hallway with daughter, appears comfortable. Reports R. calf pain in AM with ambulation but does not bother her now. Denies any other complaints. OBJECTIVE PHYSICAL EXAMINATION: VITAL SIGNS: Please see below. General: No acute distress, Alert Eyes: Normal sclera, EOMI HENT: Atraumatic Cardiovascular: Normal rate, normal rhythm. Pulmonary: Clear to auscultation b/l, no wheezing GI: Soft, nontender, nondistended Skin: Warm and dry Neuro: CN grossly intact. No focal deficits. Strengths equal b/l. Psych: oriented x 3 LABORATORY DATA, IMAGING STUDIES, MICROBIOLOGY: Please see below. DVT prophylaxis ordered?: On Eliquis ASSESSMENT AND PLAN: 1. L. frontal SAH 2/2 Fall 2. Seizure disorder - Has not had seizures in many years. - c/w Keppra with seizure precaution now. 3. DVT/PE - c/w Anticoagulation with Eliquis. - Denies any SOB. Saturating well. 4. HFpEF - monitor volume status. - c/w low dose daily 20mg lasix. - 1800 cc fluid restriction. 5. HTN - c/w Toprol XL daily. VS, I&O, 24H, Fishbone Vital Signs/I&O Vital Signs Date Time Temp Pulse Resp B/P (MAP) Pulse Ox O2 Delivery O2 Flow Rate FiO2 10/05/19 13:47 98.9 74 18 112/56 (74) 94 Room Air 10/02/19 21:00 0.0 I&O- Last 24 Hours up to 6 AM 10/05/19 06:00 Intake Total 760 ml Output Total 0 ml Balance 760 ml ISHAAN SAHNI MD Oct 05, 2019 18:00
[2019-10-05] MEDS: lisinopriL 5 MG TAB PO SCH (20:05)
[2019-10-05] MEDS: LATANOPROST 0.005% OPHTH SOLN 2.5 ML OU SCH (20:07)
[2019-10-05] MEDS: SENNA 8.6 MG TAB (SENOKOT) PO SCH (20:07)
[2019-10-05 20:08] VITALS: BP 130/70
[2019-10-06 06:00] VITALS: BP 129/73
[2019-10-06] MEDS: METOPROLOL SUCC *XL* 25MG TAB (TopROL *XL*) PO SCH (08:49)
[2019-10-06] MEDS: levETIRAcetam 250MG TABLET (KEPPRA) PO SCH ×2 (08:49→20:34)
[2019-10-06] MEDS: SERTRALINE 100 MG TAB PO SCH (08:49)
[2019-10-06] MEDS: APIXABAN 5 MG TAB (ELIQUIS) PO SCH ×2 (08:49→20:34)
[2019-10-06] MEDS: MAGNESIUM OXIDE 400 MG TAB (MAG-OX) PO SCH (08:49)
[2019-10-06] MEDS: PANTOPRAZOLE 40MG TAB (PROTONIX) PO SCH (08:49)
[2019-10-06] MEDS: DOCUSATE SODIUM 100 MG CAP PO SCH ×2 (08:50→20:35)
[2019-10-06] MEDS: FUROSEMIDE 20 MG TAB PO SCH (08:50)
--- NOTE | 2019-10-06 10:26 | IPNPDOC ---
Date Seen The patient was seen on 10/06/19. Progress Note SUBJECTIVE: Patient seen doing physical therapy today. Reports some R. calf discomfort with ambulation but otherwise denies any other complaints. Afebrile overnight. OBJECTIVE PHYSICAL EXAMINATION: VITAL SIGNS: Please see below. General: No acute distress, Alert Eyes: Normal sclera, EOMI HENT: Atraumatic Cardiovascular: Normal rate, normal rhythm. Pulmonary: Clear to auscultation b/l, no wheezing GI: Soft, nontender, nondistended Skin: Warm and dry Neuro: CN grossly intact. No focal deficits. Strengths equal b/l. Psych: oriented x 3 LABORATORY DATA, IMAGING STUDIES, MICROBIOLOGY: Please see below. DVT prophylaxis ordered?: On Eliquis ASSESSMENT AND PLAN: 1. L. frontal SAH 2/2 Fall - No discernable impairment noted at this time apart from weakness. - continue to monitor. Risks of bleed elevated in setting of anticoagulation for DVT/PE. - If recurrent fall or significant neurological changes occur, would recommend repeating scan. 2. Seizure disorder - Has not had seizures in many years. - c/w Kenilda with seizure precaution. - Previously on Dilantin and Phenobarbital, was switched to avoid interaction when she was treated for UTI. - Reportedly has not had any seizures for many years. 3. DVT/PE - c/w Anticoagulation with Eliquis. - Denies any SOB. Saturating well. 4. HFpEF - monitor volume status. - c/w low dose daily 20mg lasix. - 1800 cc fluid restriction. 5. HTN - c/w Toprol XL daily. VS, I&O, 24H, Fishbone Vital Signs/I&O Vital Signs Date Time Temp Pulse Resp B/P (MAP) Pulse Ox O2 Delivery O2 Flow Rate FiO2 10/06/19 08:49 88 111/69 10/06/19 06:00 98.2 17 94 Room Air 10/02/19 21:00 0.0 I&O- Last 24 Hours up to 6 AM 10/06/19 06:00 Intake Total 750 ml Output Total 0 ml Balance 750 ml ISHAAN SAHNI MD Oct 06, 2019 10:26
[2019-10-06 13:53] VITALS: BP 135/63
[2019-10-06 20:00] VITALS: BP 120/66
[2019-10-06] MEDS: lisinopriL 5 MG TAB PO SCH (20:33)
[2019-10-06] MEDS: LATANOPROST 0.005% OPHTH SOLN 2.5 ML OU SCH (20:34)
[2019-10-06] MEDS: SENNA 8.6 MG TAB (SENOKOT) PO SCH (20:35)
[2019-10-07 06:00] VITALS: BP 133/70
[2019-10-07 07:39] LABS: BLOOD UREA NITROGEN 8 MG/DL (7-18); CALCIUM LEVEL 8.9 MG/DL (8.8-10.2); CARBON DIOXIDE LEVEL 30 MEQ/L (21-32); CHLORIDE LEVEL 107 MEQ/L (98-107); CREATININE FOR GFR 0.66 MG/DL (0.55-1.30); GLOMERULAR FILTRATION RATE > 60.0 (>39); GLUCOSE, FASTING 97 MG/DL (70-100); POTASSIUM SERUM 3.5 MEQ/L (3.5-5.1); SODIUM LEVEL 142 MEQ/L (136-145)
[2019-10-07] MEDS: DOCUSATE SODIUM 100 MG CAP PO SCH ×2 (09:00→19:28)
[2019-10-07] MEDS: APIXABAN 5 MG TAB (ELIQUIS) PO SCH ×2 (09:24→20:54)
[2019-10-07] MEDS: PANTOPRAZOLE 40MG TAB (PROTONIX) PO SCH (09:24)
[2019-10-07] MEDS: FUROSEMIDE 20 MG TAB PO SCH (09:24)
[2019-10-07] MEDS: MAGNESIUM OXIDE 400 MG TAB (MAG-OX) PO SCH (09:24)
[2019-10-07] MEDS: SERTRALINE 100 MG TAB PO SCH (09:24)
[2019-10-07] MEDS: levETIRAcetam 250MG TABLET (KEPPRA) PO SCH ×2 (09:24→20:54)
[2019-10-07] MEDS: METOPROLOL SUCC *XL* 25MG TAB (TopROL *XL*) PO SCH (09:24)
[2019-10-07] MEDS: ACETAMINOPHEN TAB 650MG DOSE (2X325MG) PO PRN (09:56)
--- NOTE | 2019-10-07 10:09 | IPNPDOC ---
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 REVIEW OF SYSTEMS: The following is a completed review of systems and has been reviewed. Review of systems otherwise unremarkable. PAIN: Patient self reports no pain EYES: No recent vision changes EARS, NOSE, & THROAT: No throat pain, or dysphagia, or rhinorrhea CARDIOVASCULAR: Denies chest pain or palpitations PULMONARY: Denies shortness of breath at rest GASTROINTESTINAL: Denies constipation/diarrhea GENITOURINARY: denies dysuria MUSCULOSKELETAL: mild right sided weakness NEUROLOGICAL:+SAH and hx of seizures HEMATOLOGICAL: denies easy bruising SKIN: right temporal ecchymosis PSYCHIATRIC: Unremarkable All other review of systems found to be negative. PHYSICAL EXAMINATION: VITAL SIGNS: Please see below. GENERAL: Pleasant and cooperative. No acute distress. HEENT: PERRL. Extraocular movements intact. Clear conjunctiva CARDIOVASCULAR: Regular rate and rhythm. No murmurs, rubs, or gallops LUNGS: Clear to auscultation bilaterally. No wheezes. No rhonchi ABDOMEN: Soft, nontender, nondistended. Positive bowel sounds. Normal active bowel sounds NEUROLOGICAL: Alert and oriented times three. Cranial nerves II through XII sanaz ssly intact. Sensation grossly intact in all 4 limbs EXTREMITIES: 5\5 strength bilateral upper extremities. 5\5 strength right lower extremity (apraxic right LE). 5/5 strength in left lower extremity. SKIN: right temporal ecchymosis ASSESSMENT:74-year-old F with past medical history of seizure disorder who presents status post fall with traumatic SAH found to have bilat PE and DVTs. PLAN: 1. 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 CArdio/Vasc: patient with bilat PEs and DVTs c/u Eliquis, monitor for bleeding -recent ECHO with diastolic CHF, c/u fluid restrict to 1800cc -patient with elevated BPs and bilat LE swelling, c/u metoprolol 25mg daily, c/u lasix 20mg daily, and low dose REJI-I in setting of diastolic CHF-discussed case and plan with PMD Dr. Ruelas who agrees with management- LE edema continues to improve -hypokalemia resolved, will c/u to monitor while on lasix 4. Resp: weaned off 02, monitor in setting of PE, encourage incentive spirometry 5. GI ppx: protonix 6. DVT: on eliquis full dose 7. Psych: hx of depression- c/u ZOloft 9. Pain: tylenol prn 10. Dispo: 10-08-19 to home, progressing towards goals Allergies Coded Allergies: TAPE (Verified Allergy, Intermediate, rash, 12/03/18) Penicillins (Verified Allergy, Unknown, 09/17/19) codeine (Verified Adverse Reaction, Mild, GI DISTRESS, 09/17/19) Vital Signs Vital Signs Date Time Temp Pulse Resp B/P (MAP) Pulse Ox O2 Delivery O2 Flow Rate FiO2 10/07/19 09:24 64 133/70 10/07/19 06:00 97.4 18 95 Room Air 10/02/19 21:00 0.0 Laboratory Data CBC/BMP Laboratory Tests 10/07/19 06:52 Labs 24H Laboratory Tests 2 10/07/19 06:52: Anion Gap 5L, Glomerular Filtration Rate > 60.0, Calcium Level 8.9 Current Medications Current Medications Current Medications Medications (Trade) Dose Ordered Sig/Juanpablo Route PRN Reason Start Time Stop Time Status Last Admin Dose Admin Acetaminophen (Tylenol Tab) 650 mg Q4HP PRN PO MILD PAIN (PS 1-4) 09/25/19 17:30 10/07/19 09:56 Apixaban (Eliquis) 5 mg BID PO 10/02/19 09:00 10/07/19 09:24 Apixaban (Eliquis) 10 mg BID PO 09/25/19 21:00 10/01/19 10:49 DC 10/01/19 08:23 Bisacodyl (Dulcolax Tab) 5 mg DAILYPRN PRN PO CONSTIPATION 09/25/19 17:30 Docusate Sodium (Colace) 100 mg BID PO 09/25/19 21:00 09/30/19 20:16 Furosemide (Lasix) 20 mg DAILY PO 10/03/19 09:00 10/07/19 09:24 Furosemide (Lasix) 40 mg DAILY PO 10/01/19 09:00 10/03/19 08:19 DC 10/02/19 08:28 Home Med (Med Rec Complete!) ASDIRECTED XX 09/25/19 17:15 09/25/19 17:20 DC Latanoprost (Xalatan 0.005% Op Soln) 1 drop QHS OU 09/25/19 21:00 10/06/19 20:34 Levetiracetam (Keppra) 750 mg BID PO 09/25/19 21:00 10/07/19 09:24 Lisinopril (Prinivil) 5 mg QHS PO 10/01/19 21:00 10/06/19 20:33 Magnesium Hydroxide (Milk Of Magnesia) 30 ml DAILYPRN PRN PO CONSTIPATION 09/25/19 17:30 Magnesium Oxide (Mag-Ox) 400 mg DAILY PO 09/26/19 09:00 10/07/19 09:24 Metoprolol Succinate (TopROL XL) 25 mg DAILY PO 10/01/19 09:00 10/07/19 09:24 Metoprolol Tartrate (Lopressor) 25 mg Q8H PO 09/30/19 22:00 10/01/19 09:34 DC 10/01/19 05:30 Pantoprazole Sodium (Protonix) 40 mg DAILY PO 09/26/19 09:00 10/07/19 09:24 Senna (Senokot) 1 tab QHS PO 09/25/19 21:00 09/30/19 20:16 Sertraline HCl (Zoloft) 100 mg DAILY PO 09/26/19 09:00 10/07/19 09:24 Trazodone HCl (Desyrel) 25 mg QHSP PRN PO INSOMNIA 09/26/19 15:00 PAMELA MUNIZ MD Oct 07, 2019 10:09
[2019-10-07] MEDS ORDERED: METO1TAB32 PO (10:15)
[2019-10-07] MEDS ORDERED: LISI-542 PO (10:15)
[2019-10-07] MEDS ORDERED: MAG400TA PO (10:15)
[2019-10-07] MEDS ORDERED: SERT-138 PO (10:15)
[2019-10-07] MEDS ORDERED: FURO20TA2 PO (10:15)
[2019-10-07] MEDS ORDERED: KEPP250T5 PO (10:15)
[2019-10-07] MEDS ORDERED: ELIQ5TAB PO (10:15)
[2019-10-07 14:00] VITALS: BP 120/61
[2019-10-07] MEDS: SENNA 8.6 MG TAB (SENOKOT) PO SCH (19:28)
[2019-10-07 20:00] VITALS: BP 123/68
[2019-10-07] MEDS: lisinopriL 5 MG TAB PO SCH (20:54)
[2019-10-07] MEDS: LATANOPROST 0.005% OPHTH SOLN 2.5 ML OU SCH (20:55)
[2019-10-08 06:00] VITALS: BP 137/74
[2019-10-08 08:50] VITALS: BP 138/74
[2019-10-08] MEDS: FUROSEMIDE 20 MG TAB PO SCH (08:50)
[2019-10-08] MEDS: DOCUSATE SODIUM 100 MG CAP PO SCH ×2 (08:53→21:00)
[2019-10-08] MEDS: levETIRAcetam 250MG TABLET (KEPPRA) PO SCH ×2 (08:53→21:04)
[2019-10-08] MEDS: MAGNESIUM OXIDE 400 MG TAB (MAG-OX) PO SCH (08:53)
[2019-10-08] MEDS: PANTOPRAZOLE 40MG TAB (PROTONIX) PO SCH (08:54)
[2019-10-08] MEDS: APIXABAN 5 MG TAB (ELIQUIS) PO SCH ×2 (08:54→21:04)
[2019-10-08] MEDS: SERTRALINE 100 MG TAB PO SCH (08:54)
[2019-10-08] MEDS: ONDANSETRON 4 MG ORAL DISINTEGRATING TAB (Q0162 PER 1MG) PO PRN (08:55)
[2019-10-08] MEDS: METOPROLOL SUCC *XL* 25MG TAB (TopROL *XL*) PO SCH (10:38)
[2019-10-08 10:45] LABS: BASO # 0.1 10^3/uL (0.0-0.2); BASO % 2.3 % (0.0-1.0); EOS # 0.1 10^3/uL (0.0-0.5); HEMATOCRIT 37.8 % (36.0-47.0); HEMOGLOBIN 12.1 g/dl (12.0-15.5); LYMPH # 0.9 10^3/uL (1.5-5.0); LYMPH % 18.9 % (24.0-44.0); MEAN CORPUSCULAR HEMOGLOBIN 30.8 pg (27.0-33.0); MEAN CORPUSCULAR VOLUME 96.2 fl (80.0-96.0); MONO # 0.4 10^3/uL (0.0-0.8); MONO % 7.6 % (0.0-5.0); NEUTROPHILS # 3.4 10^3/uL (1.5-8.5); NEUTROPHILS % 68.8 % (36.0-66.0); PLATELET COUNT, AUTOMATED 417 10^3/uL (150-450); RED BLOOD COUNT 3.93 10^6/uL (4.00-5.40); WHITE BLOOD COUNT 4.9 10^3/uL (4.0-10.0)
[2019-10-08 11:10] LABS: BLOOD UREA NITROGEN 11 MG/DL (7-18); CARBON DIOXIDE LEVEL 31 MEQ/L (21-32); CHLORIDE LEVEL 107 MEQ/L (98-107); GLOMERULAR FILTRATION RATE > 60.0 (>39); GLUCOSE, FASTING 100 MG/DL (70-100); POTASSIUM SERUM 3.6 MEQ/L (3.5-5.1); SODIUM LEVEL 142 MEQ/L (136-145)
--- NOTE | 2019-10-08 12:39 | IPNPDOC ---
PM&R Progress Note DATE OF SERVICE: Oct 08, 2019 Tester [employer] Equipment Progress Note Subjective: Patient seen this morning in therapy stating she felt dizzy after getting up to stand from the toilet then proceeded to dry heave. Initital sBP was 196, then dropped down to 159 minutes later. Dizziness and dry heaving resolved and patients BP recheck 30 minutes later sBP 130s. Patient very apprehensive about going home and would like her daughter to keep her company. Spoke with daughter on phone and agrees to spend acouple of days with her mom during the day to keep her company. REVIEW OF SYSTEMS: The following is a completed review of systems and has been reviewed. Review of systems otherwise unremarkable. PAIN: Patient self reports no pain EYES: No recent vision changes EARS, NOSE, & THROAT: No throat pain, or dysphagia, or rhinorrhea CARDIOVASCULAR: Denies chest pain or palpitations PULMONARY: Denies shortness of breath at rest GASTROINTESTINAL: Denies constipation/diarrhea GENITOURINARY: denies dysuria MUSCULOSKELETAL: mild right sided weakness NEUROLOGICAL:+SAH and hx of seizures HEMATOLOGICAL: denies easy bruising SKIN: right temporal ecchymosis PSYCHIATRIC: +anxiety All other review of systems found to be negative. PHYSICAL EXAMINATION: VITAL SIGNS: Please see below. GENERAL: Pleasant and cooperative. No acute distress. HEENT: PERRL. Extraocular movements intact. Clear conjunctiva CARDIOVASCULAR: Regular rate and rhythm. No murmurs, rubs, or gallops LUNGS: Clear to auscultation bilaterally. No wheezes. No rhonchi ABDOMEN: Soft, nontender, nondistended. Positive bowel sounds. Normal active bowel sounds NEUROLOGICAL: Alert and oriented times three. Cranial nerves II through XII grossly intact. Sensation grossly intact in all 4 limbs EXTREMITIES: 5\5 strength bilateral upper extremities. 5\5 strength right lower extremity (apraxic right LE). 5/5 strength in left lower extremity. SKIN: right temporal ecchymosis ASSESSMENT:74-year-old F with past medical history of seizure disorder who presents status post fall with traumatic SAH found to have bilat PE and DVTs. PLAN: 1. 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 CArdio/Vasc: patient with bilat PEs and DVTs c/u Eliquis, monitor for bleeding -recent ECHO with diastolic CHF, c/u fluid restrict to 1800cc -patient with elevated BPs and bilat LE swelling, c/u metoprolol 25mg daily, c/u lasix 20mg daily, and low dose REJI-I in setting of diastolic CHF-discussed case and plan with PMD Dr. Ruelas who agrees with management- LE edema continues to improve, BPs well controlled -patient with transient elevate BP this morning while dry heaving that resolved, patient reporting she is very anxious about going home alone, but has been able to move around her room safely on her own for many days -hypokalemia resolved, will c/u to monitor while on lasix 4. Resp: weaned off 02, monitor in setting of PE, encourage incentive spirometry 5. GI ppx: protonix 6. DVT: on eliquis full dose 7. Psych: hx of depression- c/u Zoloft 9. Pain: tylenol prn 10. Dispo: 10-08-19 to home, however with episode of dizziness and dry heaves today, will defer to tomorrow following labs Allergies Coded Allergies: TAPE (Verified Allergy, Intermediate, rash, 12/03/18) Penicillins (Verified Allergy, Unknown, 09/17/19) codeine (Verified Adverse Reaction, Mild, GI DISTRESS, 09/17/19) Vital Signs Vital Signs Date Time Temp Pulse Resp B/P (MAP) Pulse Ox O2 Delivery O2 Flow Rate FiO2 10/08/19 10:38 62 138/66 10/08/19 06:00 98.3 18 97 Room Air 10/02/19 21:00 0.0 Laboratory Data CBC/BMP Laboratory Tests 10/08/19 10:16 Labs 24H Laboratory Tests 2 10/08/19 10:16: Immature Granulocyte % (Auto) 0.4, Neutrophils (%) (Auto) 68.8H, Lymphocytes (%) (Auto) 18.9L, Monocytes (%) (Auto) 7.6H, Eosinophils (%) (Auto) 2.0, Basophils (%) (Auto) 2.3H, Neutrophils # (Auto) 3.4, Lymphocytes # (Auto) 0.9L, Monocytes # (Auto) 0.4, Eosinophils # (Auto) 0.1, Basophils # (Auto) 0.1, Nucleated Red Blood Cells % (auto) 0.0, Anion Gap 4L, Glomerular Filtration Rate > 60.0, Calcium Level 9.0 Current Medications Current Medications Current Medications Medications (Trade) Dose Ordered Sig/Juanpablo Route PRN Reason Start Time Stop Time Status Last Admin Dose Admin Acetaminophen (Tylenol Tab) 650 mg Q4HP PRN PO MILD PAIN (PS 1-4) 09/25/19 17:30 10/07/19 09:56 Apixaban (Eliquis) 5 mg BID PO 10/02/19 09:00 10/08/19 08:54 Apixaban (Eliquis) 10 mg BID PO 09/25/19 21:00 10/01/19 10:49 DC 10/01/19 08:23 Bisacodyl (Dulcolax Tab) 5 mg DAILYPRN PRN PO CONSTIPATION 09/25/19 17:30 Docusate Sodium (Colace) 100 mg BID PO 09/25/19 21:00 10/08/19 08:53 Furosemide (Lasix) 20 mg DAILY PO 10/03/19 09:00 10/08/19 08:50 Furosemide (Lasix) 40 mg DAILY PO 10/01/19 09:00 10/03/19 08:19 DC 10/02/19 08:28 Home Med (Med Rec Complete!) ASDIRECTED XX 09/25/19 17:15 09/25/19 17:20 DC Latanoprost (Xalatan 0.005% Op Soln) 1 drop QHS OU 09/25/19 21:00 10/07/19 20:55 Levetiracetam (Keppra) 750 mg BID PO 09/25/19 21:00 10/08/19 08:53 Lisinopril (Prinivil) 5 mg QHS PO 10/01/19 21:00 10/07/19 20:54 Magnesium Hydroxide (Milk Of Magnesia) 30 ml DAILYPRN PRN PO CONSTIPATION 09/25/19 17:30 Magnesium Oxide (Mag-Ox) 400 mg DAILY PO 09/26/19 09:00 10/08/19 08:53 Metoprolol Succinate (TopROL XL) 25 mg DAILY PO 10/01/19 09:00 10/08/19 10:38 Metoprolol Tartrate (Lopressor) 25 mg Q8H PO 09/30/19 22:00 10/01/19 09:34 DC 10/01/19 05:30 Ondansetron HCl (Zofran Odt) 4 mg Q6HP PRN PO NAUSEA OR VOMITING 10/08/19 08:15 10/08/19 08:55 Pantoprazole Sodium (Protonix) 40 mg DAILY PO 09/26/19 09:00 10/08/19 08:54 Senna (Senokot) 1 tab QHS PO 09/25/19 21:00 09/30/19 20:16 Sertraline HCl (Zoloft) 100 mg DAILY PO 09/26/19 09:00 10/08/19 08:54 Trazodone HCl (Desyrel) 25 mg QHSP PRN PO INSOMNIA 09/26/19 15:00 PAMELA MUNIZ MD Oct 08, 2019 12:39
[2019-10-08 14:00] VITALS: BP 127/57
[2019-10-08 20:30] VITALS: BP 126/63
[2019-10-08] MEDS: SENNA 8.6 MG TAB (SENOKOT) PO SCH (21:00)
[2019-10-08] MEDS: lisinopriL 5 MG TAB PO SCH (21:05)
[2019-10-08] MEDS: LATANOPROST 0.005% OPHTH SOLN 2.5 ML OU SCH (21:06)
[2019-10-09 06:00] VITALS: BP 130/78
[2019-10-09] MEDS: ONDANSETRON 4 MG ORAL DISINTEGRATING TAB (Q0162 PER 1MG) PO PRN (06:06)
[2019-10-09 09:28] VITALS: BP 130/78
[2019-10-09] MEDS: MAGNESIUM OXIDE 400 MG TAB (MAG-OX) PO SCH (09:28)
[2019-10-09] MEDS: METOPROLOL SUCC *XL* 25MG TAB (TopROL *XL*) PO SCH (09:28)
[2019-10-09] MEDS: FUROSEMIDE 20 MG TAB PO SCH (09:28)
[2019-10-09] MEDS: SERTRALINE 100 MG TAB PO SCH (09:28)
[2019-10-09] MEDS: levETIRAcetam 250MG TABLET (KEPPRA) PO SCH (09:28)
[2019-10-09] MEDS: PANTOPRAZOLE 40MG TAB (PROTONIX) PO SCH (09:28)
[2019-10-09] MEDS: DOCUSATE SODIUM 100 MG CAP PO SCH (09:28)
[2019-10-09] MEDS: APIXABAN 5 MG TAB (ELIQUIS) PO SCH (09:36)
--- NOTE | 2019-10-10 19:18 | PMRDS ---
DATE OF ADMISSION: 09/25/2019 DATE OF DISCHARGE: 10/09/2019 CHIEF COMPLAINT/DISCHARGE DIAGNOSIS: Subarachnoid hemorrhage. HISTORY OF PRESENT ILLNESS: A 74 old female with a past medical history of seizure disorder who fell at home with loss of consciousness (LOC), hitting her head, and transferred [facility] Emergency Department (ED) to [facility] on 09/17/2019 for traumatic subarachnoid hemorrhage (SAH) with CT head showing "small amount of acute subarachnoid hemorrhage over the high left frontal lobe." Upon arrival, she was hypoxic in acute respiratory failure and found to have bilateral deep vein thromboses (DVTs) and bilateral pulmonary embolism (PEs) and was started on intravenous (IV) heparin, transitioned to Lovenox, and later transitioned to oral Eliquis per neurology recommendations with repeat CT scan showing stable SAH . Etiology of her venous thromboembolism (VTE) was unknown with the patient reporting weeks of dyspnea with exertion and dizziness. Transthoracic echocardiogram (TTE) showed "estimated left ventricular ejection fraction (LVEF) 55-60%. Indeterminate left ventricular (LV) diastolic function... The right ventricle is markedly enlarged. The right ventricular systolic function is impaired. 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 She was treated for urinary tract infection (UTI), and her home phenobarbital and Dilantin was switched to Keppra to avoid drug interaction while on blood thinners. She was evaluated by therapy, found to have mobility and activities of daily living (ADL) impairments, and deemed medically appropriate for discharge to acute rehabilitation unit (ARU) on 09/25/2019. PAST MEDICAL HISTORY: As per history of present illness (HPI). HOSPITAL COURSE: The patient was admitted and enrolled in a comprehensive physical therapy (PT)/occupational therapy (OT) program. She received 24-hour nursing supervision, and weekly team meetings were held to discuss her progress. The patient was started on a fluid restriction in the setting of congestive heart failure (CHF) in addition to Lasix, beta yuan, and low-dose angiotensin-converting enzyme (REJI) inhibitor. The patient had episodes of hypokalemia, which resolved with repletion. She was successfully weaned off of oxygen and was scheduled to be discharged on 10/08/2019, when patient developed dry heaves and reported feeling very anxious about returning home. Labs were drawn, all within normal limits, and her dry heaves and episode of dizziness resolved. Vestibular evaluation was done in PT, which was negative, and the patient performed very well on the afternoon of 10/08/2019 and was deemed medically and functionally safe to return home October 09. DISCHARGE MEDICATIONS: As per instructions. FUNCTIONAL HISTORY ON DISCHARGE: The patient was modified independent for all functional transfers, toileting, ambulating 250 feet, and able to negotiate stairs. In occupational therapy she was modified independent for dressing, grooming, and bed mobility. Thank for this referral
== END 2019-10-09 11:39 | disposition home health service (06) | DRG 949 ==
LOC: M PM&R 15:05
PROVIDERS: ADMIT Physical Medicine & Rehabilitation; ATTEND Physical Medicine & Rehabilitation
DX: S06.6X9D Traumatic subarachnoid hemorrhage with loss of consciousness of unspecified duration, subsequent encounter (principal); I26.99 Other pulmonary embolism without acute cor pulmonale; I82.401 Acute embolism and thrombosis of unspecified deep veins of right lower extremity; I82.402 Acute embolism and thrombosis of unspecified deep veins of left lower extremity; I50.32 Chronic diastolic (congestive) heart failure; G40.909 Epilepsy, unspecified, not intractable, without status epilepticus; W19.XXXD Unspecified fall, subsequent encounter; E87.6 Hypokalemia; Y92.009 Unspecified place in unspecified non-institutional (private) residence as the place of occurrence of the external cause; R48.2 Apraxia; Z79.01 Long term (current) use of anticoagulants; F32.9 Major depressive disorder, single episode, unspecified; Z79.899 Other long term (current) drug therapy; Z88.0 Allergy status to penicillin; Z88.5 Allergy status to narcotic agent; Z91.048 Other nonmedicinal substance allergy status

== ENCOUNTER → 2019-12-06 | Outpatient (CLI) | payer MEDICARE ==
[~2019-12-06] MED LIST changes: +ELIQ5TAB PO; +FURO20TA2 PO; +KEPP250T5 PO; +LEVE750T5 PO; +LISI-542 PO; +MAG400TA PO; +MAGN400T2 PO; +METO1TAB32 PO
--- NOTE | 2019-12-06 09:26 | REPVR ---
PROCEDURE INFORMATION: Exam: CT Head Without Contrast Exam date and time: 12/06/2019 9:04 AM Age: 74 years old Clinical indication: Injury or trauma; Fall; Follow-up exam; Blunt trauma (contusions or hematomas); Consciousness not specified; Additional info: Traumatic subdural hemmorage TECHNIQUE: Imaging protocol: Computed tomography of the head without contrast. Radiation optimization: All CT scans at this facility use at least one of these dose optimization techniques: automated exposure control; mA and/or kV adjustment per patient size (includes targeted exams where dose is matched to clinical indication); or iterative reconstruction. COMPARISON: CT Head without contrast 09/17/2019 5:22 AM FINDINGS: Brain: Mild generalized parenchymal atrophy and evidence of microvascular ischemic disease involving the periventricular and subcortical white matter bilaterally. Old lacunar infarct in the right basal ganglia. Ventricles: Normal. No ventriculomegaly. Bones/joints: Unremarkable. No acute fracture. Sinuses: Visualized sinuses are unremarkable. No fluid levels. Mastoid air cells: Visualized mastoid air cells are well aerated. Soft tissues: Unremarkable. IMPRESSION: No acute intracranial pathology. Electronically signed by: Chencho Clarke On 12/06/2019 09:26:41 AM
== END ==
LOC: M RAD 08:57
PROVIDERS: ATTEND Psychiatry & Neurology Neurology
DX: S06.6X2S Traumatic subarachnoid hemorrhage with loss of consciousness of 31 minutes to 59 minutes, sequela (principal); R55 Syncope and collapse; R42 Dizziness and giddiness

== ENCOUNTER → 2020-11-17 | Outpatient (REF) | payer MEDICARE ==
[~2020-11-17] MED LIST changes: -LISI-542 PO; +LISI-898 PO; -MAG400TA PO; +MAGN400T35 PO
[2020-11-17 14:02] LABS: PHENOBARBITAL LEVEL 2.1 UG/ML (15.0-40.0); PHENYTOIN (DILANTIN) 1.1 UG/ML (10.0-20.0)
== END ==
LOC: M LAB REF 12:35
PROVIDERS: ATTEND Family Medicine
DX: R56.9 Unspecified convulsions (principal)

== ENCOUNTER → 2021-05-14 | Outpatient (CLI) | payer MEDICARE ==
[~2021-05-14] MED LIST changes: +SERT50TA29 PO
== END ==
LOC: M LABSMTC 10:26
PROVIDERS: ATTEND Anesthesiology
DX: Z01.812 Encounter for preprocedural laboratory examination (principal); Z20.822 Contact with and (suspected) exposure to COVID-19

== ENCOUNTER 2021-05-19 09:52 | Day surgery (SDC) | payer MEDICARE ==
[~2021-05-19] VITALS: Ht 160 cm; Wt 73.0 kg
[~2021-05-19 09:52] MED LIST changes: +NS 1,000 ML IV ONE
--- NOTE | 2021-05-19 11:00 | ROOR ---
Patient Name: Deja Medrano Procedure Date: 05/19/2021 10:39 AM Date of : 1945 Age: 75 Room: [facility] Gender: Female Note Status: Finalized Procedure: Upper Endoscopy + Biopsies Indications: Heartburn, Nausea with vomiting Providers: Gaston Dexter MD Referring MD: Colin Ruelas MD Requesting Provider: Medicines: Monitored Anesthesia Care Complications: No immediate complications. Procedure: Pre-Anesthesia Assessment: - The heart rate, respiratory rate, oxygen saturations, blood pressure, adequacy of pulmonary ventilation, and response to care were monitored throughout the procedure. The Endoscope was introduced through the mouth, and advanced to the second part of duodenum. The upper GI endoscopy was accomplished without difficulty. The patient tolerated the procedure well. Findings: A large, ulcerating mass with bleeding and no stigmata of recent bleeding was found in the lower third of the esophagus, 25 cm from the incisors. The mass was partially obstructing and circumferential. Biopsies were taken with a cold forceps for histology. A medium-sized hiatal hernia was present. No other significant abnormalities were identified in a careful examination of the stomach. The exam of the duodenum was otherwise normal. 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 Biopsied. - Medium-sized hiatal hernia. - The examination was otherwise normal. Recommendation: - Await pathology results. - Discharge patient to home. - Follow an antireflux regimen. - Continue present medications. - Await pathology results. - Telephone GI clinic for pathology results in 1 week. - The findings and recommendations were discussed with the patient's family. Procedure Code(s): --- Professional --- 78862, Esophagogastroduodenoscopy, flexible, transoral; with biopsy, single or multiple Diagnosis Code(s): --- Professional --- D49.0, Neoplasm of unspecified behavior of digestive system K44.9, Diaphragmatic hernia without obstruction or gangrene R12, Heartburn R11.2, Nausea with vomiting, unspecified CPT copyright 2019 [employer]. All rights reserved. The codes documented in this report are preliminary and upon web weaver review may be revised to meet current compliance requirements. Gaston Dexter MD Gaston Dexter MD 05/19/2021 11:00:29 AM Electronically signed by Gaston Dexter MD Number of Addenda: 0 Note Initiated On: 05/19/2021 10:39 AM Estimated Blood Loss: Estimated blood loss: none.
[2021-05-19] MEDS ORDERED: LIDOCAINE 2% 100MG/5ML SDV (FOR ANES.) As Ordered ONE (11:10)
[2021-05-19] MEDS ORDERED: propofoL 200 MG/20 ML VIAL As Ordered ONE (11:10)
[2021-05-19 12:20] VITALS: BP 102/56
== END 2021-05-19 12:33 | disposition home or self-care (01) ==
LOC: M OPP 09:52
PROVIDERS: ATTEND Internal Medicine Gastroenterology
DX: D00.1 Carcinoma in situ of esophagus (principal); K44.9 Diaphragmatic hernia without obstruction or gangrene; R12 Heartburn; R11.2 Nausea with vomiting, unspecified; K22.70 Barrett's esophagus without dysplasia; Z79.899 Other long term (current) drug therapy; Z88.0 Allergy status to penicillin; Z88.8 Allergy status to other drugs, medicaments and biological substances; Z91.048 Other nonmedicinal substance allergy status; Z86.718 Personal history of other venous thrombosis and embolism

== ENCOUNTER → 2021-05-25 | Outpatient (CLI) | payer MEDICARE ==
[~2021-05-25] MED LIST changes: +GASTROGRAFIN SOLUTION 30ML (Q9963) As Ordered ONE; +ISOVUE-370 76% 100ML VIAL As Ordered ONE; +KEPP1SOL PO; -LISI-898 PO; +LISI5TAB11 PO; -NS 1,000 ML IV ONE; +ONDA-84 PO; -PHEN30TA37 PO; +PHEN30TA46 PO; +POTA20EL PO; +PROC10TA5 PO; +TRAN1DIS4 TOP; +levetiracetam
[2021-05-25 12:33] LABS: BASO # 0.1 10^3/uL (0.0-0.2); BASO % 1.1 % (0.0-1.0); EOS # 0.4 10^3/uL (0.0-0.5); HEMOGLOBIN 10.3 g/dl (12.0-15.5); LYMPH # 1.4 10^3/uL (1.5-5.0); LYMPH % 14.6 % (24.0-44.0); MEAN CORPUSCULAR HEMOGLOBIN 28.4 pg (27.0-33.0); MEAN CORPUSCULAR HGB CONC 31.2 g/dl (32.0-36.5); MEAN CORPUSCULAR VOLUME 90.9 fl (80.0-96.0); MONO # 0.8 10^3/uL (0.0-0.8); MONO % 8.3 % (2.0-8.0); NEUTROPHILS # 6.9 10^3/uL (1.5-8.5); NEUTROPHILS % 71.5 % (36.0-66.0); PLATELET COUNT, AUTOMATED 460 10^3/uL (150-450); RED BLOOD COUNT 3.63 10^6/uL (4.00-5.40); WHITE BLOOD COUNT 9.7 10^3/uL (4.0-10.0)
[2021-05-25 13:06] LABS: ALBUMIN 3.1 GM/DL (3.2-5.2); ALT/SGPT 15 U/L (12-78); BILIRUBIN,TOTAL 0.2 MG/DL (0.2-1.0); BLOOD UREA NITROGEN 13 MG/DL (7-18); CALCIUM LEVEL 9.3 MG/DL (8.8-10.2); CARBON DIOXIDE LEVEL 34 MEQ/L (21-32); CHLORIDE LEVEL 103 MEQ/L (98-107); CREATININE FOR GFR 0.78 MG/DL (0.55-1.30); GLOMERULAR FILTRATION RATE > 60.0 (>39); GLUCOSE, FASTING 99 MG/DL (70-100); POTASSIUM SERUM 3.3 MEQ/L (3.5-5.1); SODIUM LEVEL 142 MEQ/L (136-145); TOTAL PROTEIN 6.4 GM/DL (6.4-8.2)
== END ==
LOC: M RAD 11:12
PROVIDERS: ATTEND Internal Medicine Gastroenterology
DX: C05.9 Malignant neoplasm of palate, unspecified (principal)
CPT/HCPCS: 36415; 71260; 74177; 80053; 85025; Q9963; Q9967

== ENCOUNTER → 2021-06-07 | Outpatient (CLI) | payer MEDICARE ==
[~2021-06-07] MED LIST changes: -GASTROGRAFIN SOLUTION 30ML (Q9963) As Ordered ONE; -ISOVUE-370 76% 100ML VIAL As Ordered ONE; +LISI-898 PO; -LISI5TAB11 PO; -ONDA-84 PO; -PROC10TA5 PO; -TRAN1DIS4 TOP
== END ==
LOC: M LABSMTC 09:47
PROVIDERS: ATTEND Anesthesiology
DX: Z01.812 Encounter for preprocedural laboratory examination (principal); Z20.822 Contact with and (suspected) exposure to COVID-19

== ENCOUNTER 2021-06-11 12:58 | Day surgery (SDC) | payer MEDICARE ==
[~2021-06-11] VITALS: Ht 162.6 cm; Wt 67.6 kg
[~2021-06-11 12:58] MED LIST changes: +NS 1,000 ML IV ONE; +ONDA8TAB10 PO; +PROC10TA4 PO
[2021-06-11] MEDS ORDERED: VANCOMYCIN HCL 1,000 MG, VIAL MATE ADAPTER 1 EACH in NS 250 ML IV ONE (13:50)
[2021-06-11] MEDS ORDERED: VANCOMYCIN 1000MG/20ML VIAL As Ordered ONE (14:11)
[2021-06-11] MEDS ORDERED: propofoL 200 MG/20 ML VIAL As Ordered ONE (15:24)
[2021-06-11] MEDS ORDERED: MIDAZOLAM INJ 2MG/2ML VIAL (J2250 PER 1MG) As Ordered ONE (15:24)
[2021-06-11] MEDS ORDERED: LIDOCAINE 2% 100MG/5ML SDV (FOR ANES.) As Ordered ONE (15:24)
[2021-06-11] MEDS ORDERED: fentaNYL 100 MCG/2 ML INJECTION (J3010) As Ordered ONE (15:24)
--- NOTE | 2021-06-11 17:15 | ECGEPIP ---
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 LA conduction disturbance Leftward axis Low voltages with RSR prime in V1 and somewhat prominent R waves V2 and V3; pulmonary disease versus body habitus. Consider RIGHT VENTRICULAR HYPERTROPHY versus prior posterior wall AL. Nonspecific ST/T wave abnormalities - these were less marked than prior tracing 1 09/17/19. Electronically Signed on 06-11-2021 17:15:09 EDT by Yuri Valdez
[2021-06-11] MEDS ORDERED: LR 1,000 ML IV SCH (17:35)
[2021-06-11] MEDS ORDERED: fentaNYL 100 MCG/2 ML INJECTION (J3010) IV PRN (17:35)
[2021-06-11] MEDS ORDERED: ONDANSETRON 4MG/2ML VIAL IV PRN (17:35)
--- NOTE | 2021-06-11 17:51 | ROOR ---
Patient Name: Deja Medrano Procedure Date: 06/11/2021 3:24 PM Date of : 1945 Age: 76 Room: [facility] Gender: Female Note Status: Finalized Procedure: Upper GI endoscopy Indications: Place PEG due to feeding difficulties secondary to esophageal tumor Providers: Ulysses Flores MD Referring MD: Colin Ruelas MD Requesting Provider: Medicines: Monitored Anesthesia Care Complications: No immediate complications. Procedure: Pre-Anesthesia Assessment: - Prior to the procedure, a History and Physical was performed, and patient medications and allergies were reviewed. The patient is competent. The risks and benefits of the procedure and the sedation options and risks were discussed with the patient. All questions were answered and informed consent was obtained. Patient identification and proposed procedure were verified by the physician, the nurse and the solutions market consultant in the procedure room. Mental Status Examination: alert and oriented. ASA Grade Assessment: III - A patient with severe systemic disease. After reviewing the risks and benefits, the patient was deemed in satisfactory condition to undergo the procedure. The anesthesia plan was to use monitored anesthesia care (MAC). Immediately prior to administration of medications, the patient was re-assessed for adequacy to receive sedatives. The heart rate, respiratory rate, oxygen saturations, blood pressure, adequacy of pulmonary ventilation, and response to care were monitored throughout the procedure. The physical status of the patient was re-assessed after the procedure. The Endoscope was introduced through the mouth, and advanced to the antrum of the stomach. The upper GI endoscopy was performed with moderate difficulty due to a partially obstructing mass. The lumen of the esophagus was so narrowed that insertion of the scope was difficult and the insertion of the G tube down the esophagus was precluded. The upper GI endoscopy was unusually difficult due to the patient's oxygen desaturation. Successful completion of the procedure was aided by changing endoscopes. The ultra slim Endoscope was introduced through the mouth, and advanced to the antrum of the stomach. Findings: Placement of a direct stick PEG with 3 T-fasteners was successfully completed. The GrexItanos 24 lithuanian introducer was placed over the wire and a 20 Fr JANICE balloon gastrostomy tube was inserted. The external bumper was at the 4.0 cm marking on the tube. Impression: - No specimens collected. Recommendation: - Please follow the post-PEG recommendations including: change dressing once per day and may use PEG tomorrow for feedings. Procedure Code(s): --- Professional --- 31713, 52, Esophagogastroduodenoscopy, flexible, transoral; with directed placement of percutaneous gastrostomy tube Diagnosis Code(s): --- Professional --- D37.8, Neoplasm of uncertain behavior of other specified digestive organs R63.3, Feeding difficulties Z43.1, Encounter for attention to gastrostomy CPT copyright 2019 [employer]. All rights reserved. The codes documented in this report are preliminary and upon label coder review may be revised to meet current compliance requirements. Attending Participation: I personally performed the entire procedure. Ulysses Flores MD Ulysses Flores MD 06/11/2021 5:51:24 PM Electronically signed by Ulysses Flores MD Number of Addenda: 0 Note Initiated On: 06/11/2021 3:24 PM Estimated Blood Loss: Estimated blood loss was minimal.
[2021-06-11 18:10] VITALS: BP 117/58
[2021-06-15] MEDS ORDERED: KEPP1SOL PO (17:38)
[2021-06-15] MEDS ORDERED: SCOP1PAT2 TOP (17:58)
== END 2021-06-11 18:15 | disposition home or self-care (01) ==
LOC: M OPP 12:58
PROVIDERS: ATTEND Surgery
DX: R63.3 Feeding difficulties (principal); D37.8 Neoplasm of uncertain behavior of other specified digestive organs; Z43.1 Encounter for attention to gastrostomy; C15.5 Malignant neoplasm of lower third of esophagus; Z79.899 Other long term (current) drug therapy; Z88.0 Allergy status to penicillin; Z88.5 Allergy status to narcotic agent; Z91.048 Other nonmedicinal substance allergy status
CPT/HCPCS: 43246; 93005; J2250; J3010; J3370

== ENCOUNTER 2021-06-25 23:44 | Emergency (ER) | payer MEDICARE ==
[~2021-06-25] VITALS: Ht 162.6 cm; Wt 67.5 kg
[~2021-06-25 23:44] MED LIST changes: -NS 1,000 ML IV ONE; +SCOP1PAT2 TOP
[2021-06-25 23:45] VITALS: BP 143/63
[2021-06-26] MEDS ORDERED: KEPP1SOL PO (09:53)
== END 2021-06-26 00:58 | disposition left against medical advice (07) ==
LOC: M ED 23:44
DX: Z53.21 Procedure and treatment not carried out due to patient leaving prior to being seen by health care provider (principal)

== ENCOUNTER 2021-06-26 07:56 | Emergency (ER) | payer MEDICARE ==
[~2021-06-26] VITALS: Ht 162.6 cm; Wt 66.8 kg
[2021-06-26] MEDS ORDERED: methylPREDNISolone 125MG 2ML VIAL IV ONE (09:00)
[2021-06-26] MEDS: COMBIVENT RESPIMAT 100-20MCG INHALER 4GM INH SCH ×3 (09:28→09:49)
--- NOTE | 2021-06-26 09:36 | REP ---
INDICATION: DYSPNEA/COUGH. COMPARISON: Portable chest, 09/17/2019. TECHNIQUE: Upright AP portable chest image was obtained. FINDINGS: The lungs are clear. The heart size is normal. Status post esophagectomy with gastric pull-through. There are numerous surgical clips in the epigastrium. IMPRESSION: 1. No evidence of acute cardiopulmonary pathology. 2. Status post esophagectomy with gastric pull-through. <Electronically signed by Adiel Monet > 06/26/21 [id number]
[2021-06-26 09:52] LABS: BASO # 0.1 10^3/uL (0.0-0.2); BASO % 0.8 % (0.0-1.0); EOS # 0.2 10^3/uL (0.0-0.5); EOS % 1.7 % (0.0-3.0); HEMATOCRIT 33.5 % (36.0-47.0); HEMOGLOBIN 10.6 g/dl (12.0-15.5); LYMPH # 0.9 10^3/uL (1.5-5.0); MEAN CORPUSCULAR HGB CONC 31.6 g/dl (32.0-36.5); MEAN CORPUSCULAR VOLUME 85.2 fl (80.0-96.0); MONO # 0.9 10^3/uL (0.0-0.8); MONO % 9.1 % (2.0-8.0); NEUTROPHILS # 7.7 10^3/uL (1.5-8.5); NEUTROPHILS % 79.1 % (36.0-66.0); PLATELET COUNT, AUTOMATED 437 10^3/uL (150-450); RED BLOOD COUNT 3.93 10^6/uL (4.00-5.40); WHITE BLOOD COUNT 9.8 10^3/uL (4.0-10.0)
[2021-06-26] MEDS ORDERED: KEPP1SOL PO (09:53)
[2021-06-26] MEDS ORDERED: levETIRAcetam ORAL SOLUTION 500 MG/5 ML UDC GT SCH (10:00)
[2021-06-26 10:22] LABS: ALBUMIN 2.5 GM/DL (3.2-5.2); ALT/SGPT 14 U/L (12-78); BILIRUBIN,DIRECT < 0.1 MG/DL (0.0-0.2); BILIRUBIN,TOTAL 0.2 MG/DL (0.2-1.0); BLOOD UREA NITROGEN 16 MG/DL (7-18); CALCIUM LEVEL 9.9 MG/DL (8.8-10.2); CARBON DIOXIDE LEVEL 31 MEQ/L (21-32); CHLORIDE LEVEL 102 MEQ/L (98-107); CK-MB VALUE MASS < 1.0 NG/ML (<3.6); CPK CREATINE PHOSPHOKINASE 33 U/L (26-192); CREATININE FOR GFR 0.53 MG/DL (0.55-1.30); GLOMERULAR FILTRATION RATE > 60.0 (>39); GLUCOSE, FASTING 94 MG/DL (70-100); MB/CK RELATIVE INDEX 3.03 (< OR =4); NT-PRO BNP 1029 PG/ML (<450); POTASSIUM SERUM 3.7 MEQ/L (3.5-5.1); SODIUM LEVEL 140 MEQ/L (136-145); THYROID STIMULATING HORMONE 0.758 uIU/ML (0.358-3.740); THYROXINE (T4) 13.2 UG/DL (4.5-12.0); TOTAL PROTEIN 6.6 GM/DL (6.4-8.2); TROPONIN I < 0.02 NG/ML (< 0.10)
[2021-06-26] MEDS ORDERED: levETIRAcetam ORAL SOLUTION 500 MG/5 ML UDC GT ONE (10:30)
[2021-06-26] MEDS ORDERED: ISOVUE-370 76% 100ML VIAL As Ordered ONE (10:56)
[2021-06-26] MEDS ORDERED: FUROSEMIDE 20MG/2ML VIAL (J1940) IV ONE (11:05)
--- NOTE | 2021-06-26 11:40 | REP ---
INDICATION: sob,esophageal ca. COMPARISON: None. TECHNIQUE: Imaging protocol: CT angiography of the chest with IV contrast. Contiguous 3 mm thick axial projection images were obtained through the chest. 2D sagittal and coronal reconstructions were performed. Radiation optimization: All CT scans at this facility use at least one of these dose optimization techniques: automated exposure control; mA and/or kV adjustment per patient size (includes targeted exams where dose is matched to clinical indication); or iterative reconstruction. FINDINGS: Lower neck: There is a 6 mm in diameter low-density nodule in the right thyroid lobe. There is a coarse calcification in the right thyroid lobe. There is no supraclavicular lymphadenopathy. Mediastinum: Status post esophagectomy with gastric pull-through. There is a posterior mediastinal mass, centered at the T6-7 level, measuring 9.0 cm in transverse dimension, 8.8 cm in vertical dimension, and 8.2 cm in AP dimension. There is right paratracheal and left hilar lymphadenopathy. Heart/thoracic aorta: The heart size is normal. There is no pericardial effusion. There is calcific vascular disease of the thoracic aorta and coronary arteries. Upper abdomen: Please see CT abdomen and pelvis report same day. Chest wall and axilla: The breasts and soft tissues of the chest wall appear normal. There is no axillary lymphadenopathy. There is moderate multilevel degenerative disc disease of the thoracic spine with mild dextroscoliosis. Lung parenchyma: There is minimal posterior pleural thickening bilaterally. There is linear scarring in the middle lobe of the right lung. The lungs are otherwise clear. There are no pleural effusions. CONTRAST: 100 cc Isovue 370 IV. IMPRESSION: 1. Large mass in the posterior mediastinum consistent with recurrence esophageal carcinoma. 2. Right paratracheal and left hilar lymphadenopathy consistent with metastatic disease. 3. Status post esophagectomy with gastric pull-through. 4. No significant lung disease. 5. Other findings as noted. <Electronically signed by Adiel Monet > 06/26/21 [id number]
[2021-06-26 12:00] VITALS: BP 127/69
--- NOTE | 2021-06-26 12:27 | REP ---
INDICATION: sob,esophageal ca. COMPARISON: CT abdomen pelvis with contrast, 05/25/2021. TECHNIQUE: Imaging protocol: Computed tomography of the abdomen and pelvis with IV contrast. Contiguous 3 mm thick axial projection images were obtained through the abdomen and pelvis. 2D sagittal and coronal reconstructions were performed. Radiation optimization: All CT scans at this facility use at least one of these dose optimization techniques: automated exposure control; mA and/or kV adjustment per patient size (includes targeted exams where dose is matched to clinical indication); or iterative reconstruction. Contrast material: ISOVUE 370; Contrast volume: 100 ml; Contrast route: INTRAVENOUS (IV). FINDINGS: Heart and lung bases: See CT angiography of the chest report same day. Liver: There is a 2.5 x 1.9 cm (was 2.5 x 1.9 cm) low-density nodule in the posterior segment of the right hepatic lobe there is a 12 x 10 mm (was 11 x 9 mm) peripheral low-density nodule in the medial segment of the left hepatic lobe. Gallbladder: Surgically absent. Spleen: Normal. There is a benign splenule in the splenic hilum. Pancreas: Normal. Adrenal glands: Normal. Kidneys/bladder: There is a stable benign cortical cyst in the left kidney. The right kidney is unremarkable. The urinary bladder has a normal unenhanced appearance. Pelvic structures: There is a 2.9 x 2.4 cm (was 19 x 18 mm) soft tissue density nodule in the pelvis at the bladder dome. The uterus is surgically absent. The ovaries are not identified. There is no free fluid the pelvis. There is no pelvic or inguinal lymphadenopathy. GI tract: Status post esophagectomy with gastric pull-through. There is a gastrostomy tube. There is moderate sigmoid diverticulosis without diverticulitis. There is scattered diverticuli throughout the remainder of the colon. The appendix is not demonstrated. Abdominal wall and mesentery: There is a gastrolienal lymph node measuring 13 x 11 mm. There is a subcutaneous soft tissue density nodule in the left mid abdomen measuring 11 x 9 mm there are multiple enlarged retrocrural lymph nodes, a sales representative health insurance node measuring 20 x 14 mm (was 19 x 13 mm). There is a 2.7 x 2.4 cm (was 1.6 x 1.1 cm) soft tissue density mass in the left perihepatic space. There is a 12 x 11 mm soft tissue density nodule in the left pericolic gutter (image 60). There are multiple additional abnormal soft tissue density nodules in the peritoneal cavity (image 72, 114). Abdominal aorta and vascular structures: There is calcific vascular disease of the abdominal aorta. The inferior vena cava and portal venous system are normal. Bony structures: There is multilevel degenerative disc disease of the lumbar spine. There is moderate osteitis of the right SI joint. There is mild arthritis of the left hip. IMPRESSION: 1. Status post esophagectomy with gastric pull-through. 2. There is again noted retrocrural lymphadenopathy, multiple intra-abdominal soft tissue nodules, and a left mid abdomen subcutaneous nodule, consistent with metastatic disease, demonstrating progression since the prior exam. 3. Other findings as noted, not significantly changed. <Electronically signed by Adiel Monet > 06/26/21 [id number]
--- NOTE | 2021-06-27 08:07 | ED PDOC ---
Post-Departure Follow-Up radiology report faxed to Sofia Dunn MD Jun 27, 2021 08:07
--- NOTE | 2021-06-28 16:37 | ECGEPIP ---
[facility] - ED Test Date: 2021-06-26 Pat Name: AUGUSTUS LIZAMA Department: Room: - Gender: Female Multimedia Technician: KAYLYNN : 1945 Requested By: Brown Webber Order Number: [id number] Reading MD: Sofia August Measurements Intervals [place] Rate: 83 P: 90 WI: 152 QRS: -9 QRSD: 74 T: 8 QT: 376 QTc: 441 Interpretive Statements Sinus rhythm with frequent premature ventricular complexes Nonspecific ST and T wave abnormality low voltage similar 06/11/21 Electronically Signed on 06-28-2021 16:36:55 EDT by Sofia August
== END 2021-06-26 13:30 | disposition home or self-care (01) ==
LOC: M ED 07:56
DX: C15.9 Malignant neoplasm of esophagus, unspecified (principal); R06.00 Dyspnea, unspecified; Z88.0 Allergy status to penicillin; Z88.6 Allergy status to analgesic agent; Z91.048 Other nonmedicinal substance allergy status
CPT/HCPCS: 36600; 71045; 71275; 74177; 80048; 80076; 82550; 82553; 82803; 83605; 83880; 84436; 84443; 84484; 85025; 87040; 87798; 93005; 93041; 94640; 96374; 96375; 99285; J1940; J2930; Q9967

== ENCOUNTER 2021-06-29 19:58 | Observation (INO) | payer MEDICARE ==
[~2021-06-29] VITALS: Ht 170.2 cm; Wt 66.7 kg
--- NOTE | 2021-06-29 21:14 | HPEPDOC ---
[facility] Medical History & Physical Date of Admission Jun 30, 2021 Date of Service: Jun 30, 2021 Primary Care Physician: UMA CARIAS M.D. Attending Physician: BONNIE SILVEIRA MD History and Physical TIME OF SERVICE: 940pm CHIEF COMPLAINT: shortness of breath HISTORY OF PRESENT ILLNESS: The history was obtained from the patients daughter, Luisa Medrano who was at the bedside, and via chart review. is a 76 yr old F w esophageal cancer who declined chemotherapy or radiation therapy. She has been suffering with difficulties breathing for several month and had a Palliative care appointment today but she decided not to go because she was not feeling well. According to her daughter the patient came to the hospital on Sat w c/o dyspnea and was sent home with breathing treatments. This evening the patients daughter brought her to the ER because she became unresponsive. The patients daughter would like to focus on keeping her mother comfortable. REVIEW OF SYSTEMS: unable to obtain bc the patient is obtunded PAST MEDICAL/ SURGICAL HISTORY: Barretts esophagus, esophageal cancer, DVT/PE, subdural hematoma after a fall that was managed conservatively, cholecystectomy, sliding hiatal hernia managed with Silvano fundoplication, parathyroidectomy to manage hyperparathyroidism, bilateral cataract surgery SOCIAL HISTORY: she is a (her of cancer) who doesnt smoke or drink alcohol FAMILY HISTORY: no hx of cancer ALLERGIES: Please see below. HOME MEDICATIONS: Please see below. PHYSICAL EXAMINATION: Vital Signs Date Time Temp Pulse Resp B/P (MAP) Pulse Ox O2 Delivery O2 Flow Rate FiO2 06/29/21 20:13 107 32 136/77 (96) 98 Non-Rebreather 10.0 06/29/21 20:13 98.2 GENERAL APPEARANCE: well-nourished ABDOMEN: contour distended INTEGUMENT: pale PSYCHIATRIC: obtunded / RAAS Score -5 LABORATORY DATA: n/a IMAGING: n/a MICROBIOLOGY: Respiratory panel neg ASSESSMENT: is a 76 yr old w esophageal cancer who was brought to the ER by her daughter for evaluation of encephalopathy and will be admitted for VAMP MARKER. PLAN: 1 Respiratory distress 2/2 Esophageal cancer 2 Encephalopathy 3 SIRs vs Sepsis (tachycardia and tachypnea) Plan: place VAMP MARKER order set w morphine, ativan and scopolamine / will ask the day time team to consult Hospice if she survives the night / I informed the daughter that her mother appears may not survive the night and that she should invite any family members who would like to see her mother to the hospital tonight. Dispo: pending clinical course / the pt is admitted under obs status. Home Medications Scheduled Furosemide (Furosemide) 20 Mg Tablet, 20 MG PO DAILY Levetiracetam (Keppra) 100 Mg/1 Ml Solution, 7.5 ML PO BID Metoprolol Succinate (Metoprolol Succinate) 25 Mg Tab.er.24h, 25 MG PO DAILY Scopolamine (Transderm-Scop) 1 Each Patch.td.3, 1.5 MG TOP Q72H Miscellaneous Medications Levetiracetam (Keppra) 100 Mg/1 Ml Solution, 750 MG PO Allergies Coded Allergies: TAPE (Verified Allergy, Intermediate, rash, 05/06/21) Penicillins (Verified Allergy, Unknown, 05/06/21) codeine (Verified Adverse Reaction, Mild, GI DISTRESS, 05/06/21) A-FIB/CHADSVASC A-FIB History Current/History of A-Fib/PAF?: No Current PO Anticoag Therapy: No BONNIE SILVEIRA MD Jun 29, 2021 21:14
[2021-06-29] MEDS ORDERED: ATROPINE SULFATE 1% OP SOLN 2 ML BTL SL PRN (21:15)
[2021-06-29] MEDS ORDERED: ACETAMINOPHEN 650 MG SUPP PR PRN (21:15)
[2021-06-29] MEDS ORDERED: LORazepam 2 MG/ML VIAL IV PRN (21:15)
[2021-06-29] MEDS ORDERED: FLEET ENEMA PR PRN (21:15)
[2021-06-29] MEDS ORDERED: SCOPOLAMINE 1MG TRANSDERMAL PATCH TOP PRN (21:15)
[2021-06-29] MEDS ORDERED: HYOSCYAMINE SULFATE 0.125 MG SUBL TABLET PO PRN (21:15)
[2021-06-29] MEDS ORDERED: ONDANSETRON 4MG/2ML VIAL IV PRN (21:15)
[2021-06-29] MEDS ORDERED: MORPHINE 2 MG/ML 1ML VIAL (J2270) IV PRN (21:15)
[2021-06-29 21:54] LABS: RSV AMPLIFICATION NEGATIVE (NEGATIVE)
[2021-06-29 22:06] VITALS: BP 131/74
--- NOTE | 2021-06-30 05:01 | DS.PDOC ---
Discharge Summary General Date of Admission Jun 29, 2021 at 19:59 Date of Discharge Jun 30 2021 Primary Care Physician: UMA CARIAS M.D. Attending Physician: BONNIE SILVEIRA MD Discharge Summary PROCEDURES PERFORMED DURING STAY: [None]. ADMITTING DIAGNOSES: 1 Respiratory distress 2/2 Esophageal cancer 2 Encephalopathy 3 SIRs vs Sepsis (tachycardia and tachypnea) DISCHARGE DIAGNOSES: 1 Respiratory arrest likely 2/2 Esophageal cancer 2 Encephalopathy 3 SIRs vs Sepsis (tachycardia and tachypnea) COMPLICATIONS/CHIEF COMPLAINT: shortness of breath HISTORY OF PRESENT ILLNESS: The history was obtained from the patients nat rehman Luisa Medrano who was at the bedside, and via chart review. is a 76 yr old F w esophageal cancer who declined chemotherapy or radiation therapy. She has been suffering with difficulties breathing for several month and had a Palliative care appointment today but she decided not to go because she was not feeling well. According to her daughter the patient came to the hospital on Sat w c/o dyspnea and was sent home with breathing treatments. This evening the patients daughter brought her to the ER because she became unresponsive. The patients daughter would like to focus on keeping her mother comfortable. HOSPITAL COURSE: The patient was admitted for [employer] AND BORDER OFFICER and passed vishnu on Jun 30 at 441AM DISCHARGE MEDICATIONS: Please see below. ALLERGIES: Please see below. PHYSICAL EXAMINATION ON DISCHARGE: unresponsive LABORATORY DATA: Please see below. IMAGING: n/a DISPOSITION: TIME SPENT ON DISCHARGE: 10 minutes. Laboratory Data Labs 24H Laboratory Tests 2 06/29/21 21:05: Coronavirus (COVID-19)(PCR) NEGATIVE, Influenza Type A (RT-PCR) NEGATIVE, Influenza Type B (RT-PCR) NEGATIVE, Respiratory Syncytial Virus (PCR) NEGATIVE Discharge Medications Scheduled Furosemide (Furosemide) 20 Mg Tablet, 20 MG PO DAILY Levetiracetam (Keppra) 100 Mg/1 Ml Solution, 7.5 ML PO BID, (Reported) Metoprolol Succinate (Metoprolol Succinate) 25 Mg Tab.er.24h, 25 MG PO DAILY Scopolamine (Transderm-Scop) 1 Each Patch.td.3, 1.5 MG TOP Q72H Miscellaneous Medications Levetiracetam (Keppra) 100 Mg/1 Ml Solution, 750 MG PO, (Reported) Allergies Coded Allergies: TAPE (Verified Allergy, Intermediate, rash, 05/06/21) Penicillins (Verified Allergy, Unknown, 05/06/21) codeine (Verified Adverse Reaction, Mild, GI DISTRESS, 05/06/21) BONNIE SILVEIRA MD Jun 30, 2021 05:01
== END 2021-06-30 04:07 | disposition expired ==
LOC: M ED 19:58 → M ED INP 19:59 → ENRESERV 22:07 → M MSPAV 22:30
PROVIDERS: ADMIT Internal Medicine; ATTEND Internal Medicine
DX: R09.2 Respiratory arrest (principal); C15.9 Malignant neoplasm of esophagus, unspecified; G93.40 Encephalopathy, unspecified; R00.0 Tachycardia, unspecified; Z51.5 Encounter for palliative care; R41.82 Altered mental status, unspecified; I25.10 Atherosclerotic heart disease of native coronary artery without angina pectoris; I25.2 Old myocardial infarction; Z79.899 Other long term (current) drug therapy; Z88.0 Allergy status to penicillin; Z88.5 Allergy status to narcotic agent; Z91.048 Other nonmedicinal substance allergy status
CPT/HCPCS: 87631; 96374; 99284; G0378; J2270